=== PATIENT | female | born 1965 | race Caucasian/White ===

== ENCOUNTER 2016-12-28 07:58 | Emergency (ER) | payer MEDICAID ==
[2016-12-28 08:10] VITALS: BP 129/76
[2016-12-28] MEDS ORDERED: Albuterol/Ipratropium 3.0-0.5 MG/3 ML Neb Soln NEB ONE (08:15)
[2016-12-28] MEDS ORDERED: Albuterol/Ipratropium 3.0-0.5 MG/3 ML Neb Soln ONE (08:16)
--- NOTE | 2016-12-28 08:58 | EDM.PDOC ---
ED HPI GENERAL MEDICAL PROBLEM - General Chief Complaint: Respiratory Problem Stated Complaint: TROUBLE BREATHING, PASSED OUT Time Seen by Provider: 12/28/16 08:40 Source of Information: Reports: Patient History Limitations: Reports: No Limitations - History of Present Illness INITIAL COMMENTS - FREE TEXT/NARRATIVE: This 51 yo female patient reports to the ED with increased shortness of breath over the past 2 weeks and 1 episode of passing out. The patient reports she smokes 2 packs of cigarettes per day. The patient reports her breathing has gotten worse since the smoke (from the [place]). The patient does not have a primary care provider at this time and has no home treatments. Duration: Week(s):, Constant, Getting Worse Location: Reports: Chest Quality: Reports: Dull Severity: Moderate Improves with: Reports: None Worsens with: Reports: None Associated Symptoms: Reports: Cough, Shortness of Breath - Related Data Allergies Allergy/AdvReac Type Severity Reaction Status Date / Time ibuprofen Allergy Swelling Verified 12/28/16 08:06 Penicillins Allergy Swelling Verified 12/28/16 08:06 Home Meds: Home Meds guaiFENesin [Mucinex] 1,200 mg PO PRN 12/28/16 [History] Past Medical History Cardiovascular History: Reports: Heart Murmur - Past Surgical History GI Surgical History: Reports: Appendectomy, Cholecystectomy Social & Family History - Family History Family Medical History: Noncontributory - Tobacco Use Smoking Status *Q: Current Every Day Smoker Years of Tobacco use: 15 Packs/Tins Daily: 1 - Caffeine Use Caffeine Use: Reports: None - Recreational Drug Use Recreational Drug Use: No ED ROS GENERAL - Review of Systems Review Of Systems: ROS reveals no pertinent complaints other than HPI. ED EXAM, GENERAL - Physical Exam Exam: See Below Exam Limited By: No Limitations General Appearance: Alert, WD/WN, Moderate Distress, Thin Eye Exam: Bilateral Eye: EOMI, Normal Inspection, PERRL Ears: Normal External Exam, Normal Canal, Hearing Grossly Normal, Normal TMs Nose: Normal Inspection, Normal Mucosa, No Blood Throat/Mouth: Normal Inspection, Normal Lips, Normal Teeth, Normal Gums, Normal Oropharynx, Normal Voice, No Airway Compromise Head: Atraumatic, Normocephalic Neck: Normal Inspection, Supple, Non-Tender, Full Range of Motion Respiratory/Chest: Decreased Breath Sounds, Crackles (throughout), Rhonchi ( faint in the bases) Cardiovascular: Normal Peripheral Pulses, Regular Rate, Rhythm, No Edema, No Gallop, No JVD, No Murmur, No Rub GI/Abdominal: Normal Bowel Sounds, Soft, Non-Tender, No Organomegaly, No Distention, No Abnormal Bruit, No Mass (Female) Exam: Deferred Rectal (Female) Exam: Deferred Back Exam: Normal Inspection, Full Range of Motion, NT Extremities: Normal Inspection, Normal Range of Motion, Non-Tender, Normal Capillary Refill, No Pedal Edema Neurological: Alert, Oriented, CN II-XII Intact, Normal Cognition, Normal Gait, Normal Reflexes, No Motor/Sensory Deficits Psychiatric: Normal Affect, Normal Mood Skin Exam: Warm, Dry, Intact, Normal Color, No Rash Lymphatic: No Adenopathy Course - Vital Signs Last Recorded V/S: Last Vital Signs Temp 36.7 C 12/28/16 08:08 Pulse 84 12/28/16 08:25 Resp 20 12/28/16 08:08 BP 129/76 12/28/16 08:08 Pulse Ox 96 12/28/16 08:25 - Orders/Labs/Meds Orders: Active Orders 24 hr Category Date Time Status RT Aerosol Therapy [RC] ASDIRECTED Care 12/28/16 08:16 Ordered Chest 2V [CR] Urgent Exams 12/28/16 08:15 Ordered COMPREHENSIVE METABOLIC PN,CMP [CHEM] Urgent Lab 12/28/16 08:15 Ordered Labs: Laboratory Tests 12/28/16 Range/Units 08:38 WBC 7.6 (5.0-10.0) 10^3/uL RBC 4.84 (4.2-5.4) 10^6/uL Hgb 15.7 (12.0-16.0) g/dL Hct 47.9 H (37.0-47.0) % MCV 99.0 (80-100) fL MCH 32.4 (27.0-34.0) pg MCHC 32.8 L (33.0-35.0) g/dL Plt Count 181 (150-450) 10^3/uL Neut % (Auto) 70.6 (42.2-75.2) % Lymph % (Auto) 23.5 (20.5-50.1) % [place] % (Auto) 5.5 (2-8) % Eos % (Auto) 0.1 L (1.0-3.0) % Baso % (Auto) 0.3 (0.0-1.0) % Meds: Medications Discontinued Medications Generic Name Dose Route Start Last Admin Trade Name [place] PRN Reason Stop Dose Admin Albuterol/Ipratropium 3 ml 12/28/16 08:15 12/28/16 08:20 Duoneb 3.0-0.5 Mg/3 Ml NEB 12/28/16 08:16 3 ml ONETIME ONE Administration Albuterol/Ipratropium Confirm 12/28/16 08:16 12/28/16 08:20 Duoneb 3.0-0.5 Mg/3 Ml Administered 12/28/16 08:17 Not Given Dose 3 ml .ROUTE .STK-MED ONE Methylprednisolone Sodium Succinate 40 mg 12/28/16 08:59 Solu-Medrol IM 12/28/16 09:00 ONETIME ONE Departure - Departure Time of Disposition: 09:02 Disposition: Home, Self-Care 01 Condition: Fair Clinical Impression: Acute bronchitis Qualifiers: Bronchitis organism: unspecified organism Qualified Code(s): J20.9 - Acute bronchitis, unspecified - Discharge Information Instructions: Acute Bronchitis, [id number] Forms: ED Department Discharge Care Plan Goals: The patient was advised of the examination, x-ray and lab results during the visit. The patient was given an injection of Solu-Medrol while in the ED. The patient was discharged with a script for Azithromycin (250 mg) #6 2 by mouth day 1 and 1 by mouth days 2-5 and Prednisone (20 mg) #10 to take 2 by mouth daily for 5 days. The patient was encouraged to follow-up with a primary care facility for continued evaluation and management. If the patient has any additional symptoms or concerns, the patient should visit her primary care facility or return to the emergency department. - My Orders Last 24 Hours: My Active Orders 12/28/16 08:15 Chest 2V [CR] Urgent COMPREHENSIVE METABOLIC PN,CMP [CHEM] Urgent 12/28/16 08:16 RT Aerosol Therapy [RC] ASDIRECTED - Assessment/Plan Last 24 Hours: My Active Orders 12/28/16 08:15 Chest 2V [CR] Urgent COMPREHENSIVE METABOLIC PN,CMP [CHEM] Urgent 12/28/16 08:16 RT Aerosol Therapy [RC] ASDIRECTED
[2016-12-28] MEDS ORDERED: methylPREDNISolone Sodium Succinate 40 MG/1 ML SDV IM ONE (08:59)
[2016-12-28 09:06] LABS: CHLORIDE,CL 96 mmol/L (101-111); SODIUM,NA 135 mmol/L (135-145)
== END 2016-12-28 09:21 | disposition home or self-care (01) ==
LOC: DL.ED 07:58
DX: J20.9 Acute bronchitis, unspecified (principal); F17.210 Nicotine dependence, cigarettes, uncomplicated; Z88.0 Allergy status to penicillin; Z88.6 Allergy status to analgesic agent; Z90.49 Acquired absence of other specified parts of digestive tract
CPT/HCPCS: 36415; 71020; 80053; 85025; 94640; 96372; 99285; J2920

== ENCOUNTER 2017-12-03 19:37 | Emergency (ER) | payer MEDICAID ==
[2017-12-03] MEDS ORDERED: Albuterol 0.083% 2.5 MG/3 ML Neb Soln INH ONE (19:38)
[2017-12-03] MEDS ORDERED: Codeine/Promethazine 10-6.25 MG/5 ML Syrup 5 ML UD Cup PO ONE (19:38)
[2017-12-03] MEDS ORDERED: Albuterol/Ipratropium 3.0-0.5 MG/3 ML Neb Soln NEB ONE (19:43)
[2017-12-03] MEDS ORDERED: methylPREDNISolone Sodium Succinate 125 MG/2 ML SDV IVPUSH ONE (19:44)
[2017-12-03 19:56] VITALS: BP 164/89
--- NOTE | 2017-12-03 20:01 | EDM.PDOC ---
ED HPI GENERAL MEDICAL PROBLEM - General Chief Complaint: Respiratory Problem Stated Complaint: HARD TIME BREADHING [id number] Time Seen by Provider: 12/03/17 19:59 Source of Information: Reports: Patient History Limitations: Reports: No Limitations - History of Present Illness INITIAL COMMENTS - FREE TEXT/NARRATIVE: 10 days h/o cough congestion. saw clinic got IM solumed + P.O f/u. was doing ok then got worse again 2 days ago. did stop smoking 3 weeks ago. 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 ED EXAM, GENERAL - Physical Exam Exam: See Below Exam Limited By: No Limitations General Appearance: Alert, WD/WN, Mild Distress, Other (cough) Ears: Hearing Grossly Normal Throat/Mouth: Normal Voice, No Airway Compromise Head: Atraumatic Neck: Non-Tender, Full Range of Motion Respiratory/Chest: No Accessory Muscle Use, Decreased Breath Sounds, Rhonchi, Wheezing. No: Retractions Cardiovascular: Regular Rate, Rhythm GI/Abdominal: Soft, Non-Tender Neurological: Alert, Oriented, Normal Cognition, Normal Gait, No Motor/Sensory Deficits Psychiatric: Normal Affect, Normal Mood Skin Exam: Warm, Dry, Normal Color Lymphatic: No Adenopathy Course - Vital Signs Last Recorded V/S: Last Vital Signs Temp 37.2 C 12/03/17 19:43 Pulse 100 12/03/17 19:43 Resp 20 12/03/17 19:43 BP 164/89 H 12/03/17 19:43 Pulse Ox 86 L 12/03/17 19:43 - Orders/Labs/Meds Orders: Active Orders 24 hr Category Date Time Status RT Aerosol Therapy [RC] ASDIRECTED Care 12/03/17 19:43 Active RT Aerosol Therapy [RC] ASDIRECTED Care 12/03/17 21:09 Active Chest 1V Frontal [CR] Urgent Exams 12/03/17 19:44 Taken Labs: Laboratory Tests 12/03/17 12/03/17 12/03/17 Range/Units 19:55 19:55 19:55 WBC 13.3 H (5.0-10.0) 10^3/uL RBC 4.60 (4.2-5.4) 10^6/uL Hgb 15.0 (12.0-16.0) g/dL Hct 46.6 (37.0-47.0) % MCV 101.3 H (80-100) fL MCH 32.6 (27.0-34.0) pg MCHC 32.2 L (33.0-35.0) g/dL Plt Count 195 (150-450) 10^3/uL Neut % (Auto) 68.7 (42.2-75.2) % Lymph % (Auto) 24.0 (20.5-50.1) % [place] % (Auto) 6.5 (2-8) % Eos % (Auto) 0.4 L (1.0-3.0) % Baso % (Auto) 0.4 (0.0-1.0) % Sodium 135 (135-145) mmol/L Potassium 4.3 (3.6-5.0) mmol/L Chloride 98 L (101-111) mmol/L Carbon Dioxide 28.0 (21.0-31.0) mmol/L Anion Gap 13.3 BUN 7 (7-18) mg/dL Creatinine 0.5 L (0.6-1.3) mg/dL Est Cr Clr Drug Dosing 92.10 mL/min Estimated GFR (MDRD) > 60 BUN/Creatinine Ratio 14.00 Glucose 114 H (74-105) mg/dL Lactic Acid 1.3 (0.5-2.2) mmol/L Calcium 9.1 (8.4-10.2) mg/dl Total Bilirubin 0.4 (0.2-1.0) mg/dL AST 25 (10-42) IU/L ALT 19 (10-60) IU/L Alkaline Phosphatase 69 (42-121) IU/L Total Protein 6.9 (6.7-8.2) g/dl Albumin 4.2 (3.2-5.5) g/dl Globulin 2.7 Albumin/Globulin Ratio 1.56 Meds: Medications Discontinued Medications Generic Name Dose Route Start Last Admin Trade Name Freq PRN Reason Stop Dose Admin Albuterol 2.5 mg 12/03/17 21:08 12/03/17 21:13 Proventil Neb Soln NEB 12/03/17 21:09 2.5 mg ONETIME ONE Administration Albuterol Confirm 12/03/17 21:09 12/03/17 21:20 Proventil Neb Soln Administered 12/03/17 21:10 Not Given Dose 5 mg .ROUTE .STK-MED ONE Albuterol/Ipratropium 3 ml 12/03/17 19:43 12/03/17 19:53 Duoneb 3.0-0.5 Mg/3 Ml NEB 12/03/17 19:44 3 ml ONETIME ONE Administration Methylprednisolone Sodium Succinate 125 mg 12/03/17 19:44 12/03/17 19:53 Solu-Medrol IVPUSH 12/03/17 19:45 125 mg ONETIME ONE Administration Promethazine HCl/Codeine Confirm 12/03/17 21:08 12/03/17 21:20 Phenergan With Codeine Administered 12/03/17 21:09 Not Given Dose 5 ml .ROUTE .STK-MED ONE - Re-Assessments/Exams Free Text/Narrative Re-Assessment/Exam: 12/03/17 21:07 s/p duoneb + IV solu = much better Departure - Departure Time of Disposition: 20:25 Disposition: Home, Self-Care 01 Condition: Good Clinical Impression: COPD with acute exacerbation, Bronchospasm with bronchitis, acute - Discharge Information Instructions: Chronic Obstructive Pulmonary Disease, Skez-[id number] Forms: ED Department Discharge Additional Instructions: 1) don't sleep flat at night 2) drink lots of liquids 3) recheck if there is any change or concern rx given; albuterol 2.5mg solution tid to qid prn phenergan codeine syrup qid prn - My Orders Last 24 Hours: My Active Orders 12/03/17 19:43 RT Aerosol Therapy [RC] ASDIRECTED 12/03/17 19:44 Chest 1V Frontal [CR] Urgent 12/03/17 21:09 RT Aerosol Therapy [RC] ASDIRECTED - Assessment/Plan Last 24 Hours: My Active Orders 12/03/17 19:43 RT Aerosol Therapy [RC] ASDIRECTED 12/03/17 19:44 Chest 1V Frontal [CR] Urgent 12/03/17 21:09 RT Aerosol Therapy [RC] ASDIRECTED
[2017-12-03 20:33] LABS: ANION GAP 13.3; CHLORIDE,CL 98 mmol/L (101-111); SODIUM,NA 135 mmol/L (135-145)
[2017-12-03] MEDS ORDERED: Codeine/Promethazine 10-6.25 MG/5 ML Syrup 5 ML UD Cup ONE (21:08)
[2017-12-03] MEDS ORDERED: Albuterol 0.083% 2.5 MG/3 ML Neb Soln NEB ONE (21:08)
[2017-12-03] MEDS ORDERED: Albuterol 0.083% 2.5 MG/3 ML Neb Soln ONE (21:09)
== END 2017-12-03 20:28 | disposition home or self-care (01) ==
LOC: DL.ED 19:37
DX: J20.9 Acute bronchitis, unspecified (principal); J44.0 Chronic obstructive pulmonary disease with (acute) lower respiratory infection; J44.1 Chronic obstructive pulmonary disease with (acute) exacerbation; Z88.0 Allergy status to penicillin; Z88.6 Allergy status to analgesic agent; Z87.891 Personal history of nicotine dependence
CPT/HCPCS: 36415; 71045; 80053; 83605; 85025; 96374; 99285; J2930; J7620; J7613-GY

== ENCOUNTER 2017-12-11 18:48 | Emergency (ER) | payer MEDICAID ==
[2017-12-11] MEDS ORDERED: predniSONE 20 MG Tab PO ONE (18:49)
[2017-12-11] MEDS ORDERED: Albuterol/Ipratropium 3.0-0.5 MG/3 ML Neb Soln INH ONE (18:49)
[2017-12-11] MEDS ORDERED: Azithromycin 250 MG Tab PO ONE (18:49)
[2017-12-11 19:00] VITALS: BP 151/97
[2017-12-11] MEDS ORDERED: Albuterol/Ipratropium 3.0-0.5 MG/3 ML Neb Soln NEB ONE (19:16)
[2017-12-11] MEDS ORDERED: Sodium Chloride 0.9% 10 ML Syringe FLUSH PRN (19:17)
[2017-12-11 19:57] LABS: ANION GAP 13.6; CHLORIDE,CL 91 mmol/L (101-111); SODIUM,NA 128 mmol/L (135-145)
[2017-12-11] MEDS ORDERED: cefTRIAXone 1 GM Vial IVPUSH ONE (20:08)
[2017-12-11] MEDS ORDERED: methylPREDNISolone Sodium Succinate 40 MG/1 ML SDV IVPUSH ONE (20:08)
--- NOTE | 2017-12-11 20:18 | EDM.PDOC ---
ED HPI GENERAL MEDICAL PROBLEM - General Chief Complaint: Respiratory Problem Stated Complaint: HARD TIME BREATHING [id number] Time Seen by Provider: 12/11/17 20:13 Source of Information: Reports: Patient History Limitations: Reports: No Limitations - History of Present Illness INITIAL COMMENTS - FREE TEXT/NARRATIVE: This 52 yo female patient reports to the ED with increased shortness of breath. The patient has been diagnosed with COPD, but her breathing got much worse tonight. The patient has tried her home nebulizer treatment, but has had no symptom relief. 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, Other Medication(s) - Related Data Allergies Allergy/AdvReac Type Severity Reaction Status Date / Time ibuprofen Allergy Swelling Verified 12/03/17 19:56 Penicillins Allergy Swelling Verified 12/03/17 19:56 Home Meds: Home Meds guaiFENesin [Mucinex] 1,200 mg PO PRN 12/28/16 [History] Past Medical History Cardiovascular History: Reports: Heart Murmur Respiratory History: Reports: COPD, 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, 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 ED EXAM, GENERAL - Physical Exam Exam: See Below Exam Limited By: No Limitations General Appearance: Alert, WD/WN, Moderate Distress Eye Exam: Bilateral Eye: EOMI, Normal Inspection, PERRL Ears: Normal External Exam, Normal Canal, Hearing Grossly Normal, Normal TMs Nose: Normal Inspection, Normal Mucosa, No Blood Throat/Mouth: Normal Inspection, Normal Lips, Normal Teeth, Normal Gums, Normal Oropharynx, Normal Voice, No Airway Compromise Head: Atraumatic, Normocephalic Respiratory/Chest: Decreased Breath Sounds, Rhonchi, Wheezing Cardiovascular: Normal Peripheral Pulses, Regular Rate, Rhythm, No Edema, No Gallop, No JVD, No Murmur, No Rub GI/Abdominal: Normal Bowel Sounds, Soft, Non-Tender, No Organomegaly, No Distention, No Abnormal Bruit, No Mass (Female) Exam: Deferred Rectal (Female) Exam: Deferred Back Exam: Normal Inspection, Full Range of Motion, NT Extremities: Normal Inspection, Normal Range of Motion, Non-Tender, Normal Capillary Refill, No Pedal Edema Neurological: Alert, Oriented, CN II-XII Intact, Normal Cognition, Normal Gait, Normal Reflexes, No Motor/Sensory Deficits Psychiatric: Normal Affect, Normal Mood Skin Exam: Warm, Dry, Intact, Normal Color, No Rash Lymphatic: No Adenopathy Course - Vital Signs Last Recorded V/S: Last Vital Signs Temp 36.2 C 12/11/17 18:59 Pulse 97 12/11/17 18:59 Resp 20 12/11/17 18:59 BP 151/97 H 12/11/17 18:59 Pulse Ox 87 L 12/11/17 18:59 - Orders/Labs/Meds Orders: Active Orders 24 hr Category Date Time Status Peripheral IV Care [RC] . DIRECTED Care 12/11/17 19:17 Active RT Aerosol Therapy [RC] ASDIRECTED Care 12/11/17 19:16 Active CULTURE BLOOD [BC] Stat Lab 12/11/17 19:28 Received Peripheral IV Insertion Adult [OM.PC] Routine Oth 12/11/17 19:17 Ordered Labs: Laboratory Tests 12/11/17 12/11/17 12/11/17 Range/Units 19:28 19:28 19:28 WBC 10.1 H (5.0-10.0) 10^3/uL RBC 4.51 (4.2-5.4) 10^6/uL Hgb 15.1 (12.0-16.0) g/dL Hct 44.5 (37.0-47.0) % MCV 98.7 (80-100) fL MCH 33.5 (27.0-34.0) pg MCHC 33.9 (33.0-35.0) g/dL RDW Not Reportable RDW Coeff of Veda Not Reportable Plt Count 171 (150-450) 10^3/uL MPV Not Reportable Neutrophils % (Manual) 73 (42-75) % Lymphocytes % (Manual) 21 (20-50) % Monocytes % (Manual) 6 (2-8) % Sodium 128 L (135-145) mmol/L Potassium 4.6 (3.6-5.0) mmol/L Chloride 91 L (101-111) mmol/L Carbon Dioxide 28.0 (21.0-31.0) mmol/L Anion Gap 13.6 BUN 11 (7-18) mg/dL Creatinine 0.4 L (0.6-1.3) mg/dL Est Cr Clr Drug Dosing 112.83 mL/min Estimated GFR (MDRD) > 60 BUN/Creatinine Ratio 27.50 Glucose 100 (74-105) mg/dL Lactic Acid 0.9 (0.5-2.2) mmol/L Calcium 9.2 (8.4-10.2) mg/dl Total Bilirubin 0.7 (0.2-1.0) mg/dL AST 28 (10-42) IU/L ALT 20 (10-60) IU/L Alkaline Phosphatase 66 (42-121) IU/L Total Protein 7.5 (6.7-8.2) g/dl Albumin 4.5 (3.2-5.5) g/dl Globulin 3.0 Albumin/Globulin Ratio 1.50 Meds: Medications Discontinued Medications Generic Name Dose Route Start Last Admin Trade Name Coryq PRN Reason Stop Dose Admin Albuterol/Ipratropium 3 ml 12/11/17 19:16 12/11/17 19:28 Duoneb 3.0-0.5 Mg/3 Ml NEB 12/11/17 19:17 3 ml ONETIME ONE Administration Albuterol/Ipratropium Confirm 12/11/17 20:23 Duoneb 3.0-0.5 Mg/3 Ml Administered 12/11/17 20:24 Dose 12 ml .ROUTE .STK-MED ONE Azithromycin Confirm 12/11/17 20:24 Zithromax Administered 12/11/17 20:25 Dose 500 mg .ROUTE .STK-MED ONE Ceftriaxone Sodium 1 gm 12/11/17 20:08 12/11/17 20:20 Rocephin IVPUSH 12/11/17 20:09 1 gm ONETIME ONE Administration Methylprednisolone Sodium Succinate 40 mg 12/11/17 20:08 12/11/17 20:18 Solu-Medrol IVPUSH 12/11/17 20:09 40 mg ONETIME ONE Administration Prednisone Confirm 12/11/17 20:23 Prednisone Administered 12/11/17 20:24 Dose 40 mg .ROUTE .STK-MED ONE Sodium Chloride 10 ml 12/11/17 19:17 12/11/17 19:29 Saline Flush FLUSH 10 ml ASDIRECTED PRN Administration Keep Vein Open Departure - Departure Time of Disposition: 20:13 Disposition: Home, Self-Care 01 Condition: Fair Clinical Impression: COPD with acute exacerbation Acute bronchitis Qualifiers: Bronchitis organism: unspecified organism Qualified Code(s): J20.9 - Acute bronchitis, unspecified - Discharge Information *PRESCRIPTION DRUG MONITORING PROGRAM REVIEWED*: Not Applicable *COPY OF PRESCRIPTION DRUG MONITORING REPORT IN PATIENT VANNA: Not Applicable Instructions: Chronic Obstructive Pulmonary Disease, [id number], Acute Bronchitis, Adult, [id number] Forms: ED Department Discharge Care Plan Goals: The patient was advised of the examination, lab and x-ray results during the visit. The patient was given an IV dose of SoluMedrol, an IV dose of Rocephin and a DuoNeb treatment while in the ED. The patient was discharged with Duoneb 3 mL #4 to take 1 treatment every 6 hours as needed, Azithromycin (500 mg) #1 to take tomorrow and Prednisone (20 mg) #2 to take 2 tabs by mouth tomorrow. The patient was also given a script for Prednisone (20 mg) #8 to take 2 by mouth daily for 4 days and Azithromycin (250 mg) #4 to take 1 by mouth daily ( starting 12/13/17). The patient should follow-up with her primary care facility for continued evaluation and further treatment. - My Orders Last 24 Hours: My Active Orders 12/11/17 19:16 RT Aerosol Therapy [RC] ASDIRECTED 12/11/17 19:17 Peripheral IV Care [RC] . DIRECTED Peripheral IV Insertion Adult [OM.PC] Routine 12/11/17 19:28 CULTURE BLOOD [BC] Stat - Assessment/Plan Last 24 Hours: My Active Orders 12/11/17 19:16 RT Aerosol Therapy [RC] ASDIRECTED 12/11/17 19:17 Peripheral IV Care [RC] . DIRECTED Peripheral IV Insertion Adult [OM.PC] Routine 12/11/17 19:28 CULTURE BLOOD [BC] Stat
[2017-12-11] MEDS ORDERED: predniSONE 20 MG Tab ONE (20:23)
[2017-12-11] MEDS ORDERED: Albuterol/Ipratropium 3.0-0.5 MG/3 ML Neb Soln ONE (20:23)
[2017-12-11] MEDS ORDERED: Azithromycin 250 MG Tab ONE (20:24)
== END 2017-12-11 20:35 | disposition home or self-care (01) ==
LOC: DL.ED 18:48
DX: J44.1 Chronic obstructive pulmonary disease with (acute) exacerbation (principal); J20.9 Acute bronchitis, unspecified; Z88.0 Allergy status to penicillin; Z88.6 Allergy status to analgesic agent
CPT/HCPCS: 36415; 71046; 80053; 83605; 85007; 85027; 87040; 94640; 96374; 96375; 99285; J0696; J2920; J7050; A9270-GY; J7620-GY

== ENCOUNTER 2018-10-02 19:31 | Emergency (ER) | payer MEDICAID ==
[2018-10-02] MEDS ORDERED: methylPREDNISolone Sodium Succinate 125 MG/2 ML SDV IVPUSH ONE (19:48)
--- NOTE | 2018-10-02 19:48 | EDM.PDOC ---
ED HPI GENERAL MEDICAL PROBLEM - General Stated Complaint: HARD TIME BREATHING Time Seen by Provider: 10/02/18 19:41 Source of Information: Reports: Patient History Limitations: Reports: No Limitations - History of Present Illness INITIAL COMMENTS - FREE TEXT/NARRATIVE: c/o SOB. Started with scratchy throat 2 days prior. Out mowing grass this afternoon and felt tight and SOB. DUO neb at home 545pm with some relief. No current tobacco use. No fever, HX COPD. Throat Pain Score (Numeric/FACES): 2 - Related Data Allergies Allergy/AdvReac Type Severity Reaction Status Date / Time ibuprofen Allergy Swelling Verified 10/02/18 19:49 Penicillins Allergy Swelling Verified 10/02/18 19:49 Home Meds: Home Meds Albuterol [Proventil HFA] 2 puff INH BID PRN 03/03/18 [History] Albuterol/Ipratropium [DuoNeb 3.0-0.5 MG/3 ML] 3 ml INH Q6H PRN 03/03/18 [ History] Fluticasone/Salmeterol [Advair 250-50 Diskus] 1 puff INH BID 03/03/18 [History] Acetylcysteine [Nac] 1,200 mg PO QAM 04/01/18 [History] Acetylcysteine [Nac] 1,200 mg PO QPM 04/01/18 [History] [place]-3/DHA/Epa/Fish Oil [[place] 3 500 Softgel] 1,000 mg PO DAILY 04/01/18 [ History] Ubidecarenone [Co Q-10] 100 mg PO DAILY 04/01/18 [History] Nicotine [Habitrol] 14 mg TRDERM DAILY 10 Days #10 patch 04/08/18 [Rx] dilTIAZem HCl [Diltiazem 24Hr ER] 300 mg PO DAILY 04/10/18 [History] hydrOXYzine HCl [hydrOXYzine] 25 mg PO TID PRN 04/10/18 [History] Dulera 2 puff INH BID 10/02/18 [History] Past Medical History HEENT History: Reports: Impaired Vision Cardiovascular History: Reports: Heart Murmur, Pulmonary Hypertension Respiratory History: Reports: COPD, Pneumonia, Recurrent, 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 ED EXAM, GENERAL - Physical Exam Exam: See Below Exam Limited By: No Limitations General Appearance: Alert, Mild Distress Eye Exam: Bilateral Eye: EOMI Ears: Normal External Exam, Normal TMs Nose: Normal Inspection Throat/Mouth: Normal Inspection Head: Atraumatic, Normocephalic Neck: Normal Inspection Respiratory/Chest: No Respiratory Distress, Decreased Breath Sounds, Wheezing ( bilateral ), Prolonged Expiration Cardiovascular: Normal Peripheral Pulses, Regular Rate, Rhythm GI/Abdominal: Normal Bowel Sounds Extremities: Normal Inspection Neurological: Alert, Oriented, Normal Cognition Psychiatric: Normal Affect, Normal Mood Skin Exam: Warm, Dry, Intact, Normal Color Course - Vital Signs Last Recorded V/S: Last Vital Signs Temp 98.6 F 10/02/18 19:33 Pulse 79 10/02/18 19:33 Resp 14 10/02/18 19:33 BP 138/84 10/02/18 19:33 Pulse Ox 93 L 10/02/18 19:33 - Orders/Labs/Meds Orders: Active Orders 24 hr Category Date Time Status RT Aerosol Therapy [RC] ASDIRECTED Care 10/02/18 20:26 Active CXR [Chest 2V] [CR] Urgent Exams 10/02/18 20:11 Taken CULTURE STREP A CONFIRMATION [] Stat Lab 10/02/18 19:40 Results STREP SCRN A RAPID W CULT CONF [RM] Stat Lab 10/02/18 19:40 Results Labs: Laboratory Tests 10/02/18 10/02/18 Range/Units 19:59 19:59 WBC 5.8 (5.0-10.0) 10^3/uL RBC 4.07 L (4.2-5.4) 10^6/uL Hgb 12.6 (12.0-16.0) g/dL Hct 38.7 (37.0-47.0) % MCV 95.1 D (80-100) fL MCH 31.0 (27.0-34.0) pg MCHC 32.6 L (33.0-35.0) g/dL Plt Count 163 (150-450) 10^3/uL Neut % (Auto) 54.8 (42.2-75.2) % Lymph % (Auto) 33.7 (20.5-50.1) % [place] % (Auto) 9.6 H (2-8) % Eos % (Auto) 1.2 (1.0-3.0) % Baso % (Auto) 0.7 (0.0-1.0) % Sodium 136 (135-145) mmol/L Potassium 3.7 (3.6-5.0) mmol/L Chloride 102 (101-111) mmol/L Carbon Dioxide 25.0 (21.0-31.0) mmol/L Anion Gap 12.7 BUN 4 L (7-18) mg/dL Creatinine 0.3 L (0.6-1.3) mg/dL Est Cr Clr Drug Dosing 159.00 mL/min Estimated GFR (MDRD) > 60 BUN/Creatinine Ratio 13.33 Glucose 99 (74-105) mg/dL Calcium 9.0 (8.4-10.2) mg/dl Total Bilirubin 0.5 (0.2-1.0) mg/dL AST 19 (10-42) IU/L ALT 15 (10-60) IU/L Alkaline Phosphatase 66 (42-121) IU/L Total Protein 6.7 (6.7-8.2) g/dl Albumin 4.5 (3.2-5.5) g/dl Globulin 2.2 Albumin/Globulin Ratio 2.05 Meds: Medications Discontinued Medications Generic Name Dose Route Start Last Admin Trade Name Freq PRN Reason Stop Dose Admin Albuterol 2.5 mg 10/02/18 20:25 10/02/18 20:31 Proventil Neb Soln NEB 10/02/18 20:26 2.5 mg ONETIME ONE Administration Methylprednisolone Sodium Succinate 125 mg 10/02/18 19:48 10/02/18 20:00 Solu-Medrol IVPUSH 10/02/18 19:49 125 mg ONETIME ONE Administration - Radiology Interpretation Free Text/Narrative:: [facility] Final Radiology Report Call: [phone] assistance Online chat: [email or web address] Name: ZAMZAM PERALTA Age: 53Years F Date: 10/02/2018 SSN: -- : [id number] Study: XR CHEST 2 VIEWS FRONTAL & LAT Requesting Physician: LE HOLLINGSWORTH Images: 2 Addl Studies: Provided Clinical History: Contrast: Contrast Medium: Contrast Amount: Contrast Method: CONFIDENTIALITY STATEMENT This report is intended only for use by the referring physician, and only in accordance with law. If you received this in error, call [phone]. Page 1 of 1 EXAM: XR Chest, 2 Views EXAM DATE/TIME: 10/02/2018 8:16 PM CLINICAL HISTORY: 53 years old, female; Cough TECHNIQUE: Imaging protocol: XR of the chest, 2 views. COMPARISON: CR Chest 1V Frontal 04/01/2018 8:40 AM FINDINGS: Lungs: Emphysematous changes. No evidence of pneumonia, pulmonary vascular congestion, or pulmonary edema. Pleural space: No pneumothorax. No sizable pleural effusion. Heart/Mediastinum: No cardiomegaly. Bones/joints: Callous surrounding an old fracture of the posterior left sixth rib. IMPRESSION: Emphysematous changes. No evidence of pneumonia, pulmonary vascular congestion, or pulmonary edema. Thank you for allowing us to participate in the care of your patient. Dictated and Authenticated by: Sarabjit Nunn MD 10/02/2018 9:59 PM Central Time ([place] & [place] Departure - Departure Time of Disposition: 20:38 Disposition: Home, Self-Care 01 Condition: Good Clinical Impression: COPD exacerbation - Discharge Information *PRESCRIPTION DRUG MONITORING PROGRAM REVIEWED*: Yes *COPY OF PRESCRIPTION DRUG MONITORING REPORT IN PATIENT VANNA: No Instructions: Chronic Obstructive Pulmonary Disease Exacerbation, [id number] Referrals: Ivette Fuller MD [Primary Care Provider] - Forms: ED Department Discharge Additional Instructions: Continue home medications Albuterol inhaler/ nebulizer every 4 hours as needed prednisone 10mg - 4 x 2 days , 3 x 2 dasy, 2 x 2 days, 1 x 2 days follow up clinic this week for recheck - My Orders Last 24 Hours: My Active Orders 10/02/18 19:40 CULTURE STREP A CONFIRMATION [] Stat STREP SCRN A RAPID W CULT CONF [RM] Stat 10/02/18 20:11 CXR [Chest 2V] [CR] Urgent 10/02/18 20:26 RT Aerosol Therapy [RC] ASDIRECTED - Assessment/Plan Last 24 Hours: My Active Orders 10/02/18 19:40 CULTURE STREP A CONFIRMATION [RM] Stat STREP SCRN A RAPID W CULT CONF [RM] Stat 10/02/18 20:11 CXR [Chest 2V] [CR] Urgent 10/02/18 20:26 RT Aerosol Therapy [RC] ASDIRECTED
[2018-10-02 19:49] VITALS: BP 138/84; PULSE 79
[2018-10-02] MEDS ORDERED: Albuterol 0.083% 2.5 MG/3 ML Neb Soln NEB ONE (20:25)
[2018-10-02 20:35] LABS: ANION GAP 12.7; CHLORIDE,CL 102 mmol/L (101-111); SODIUM,NA 136 mmol/L (135-145)
== END 2018-10-02 20:48 | disposition home or self-care (01) ==
LOC: DL.ED 19:31
DX: J44.1 Chronic obstructive pulmonary disease with (acute) exacerbation (principal); Z87.01 Personal history of pneumonia (recurrent); Z88.0 Allergy status to penicillin; Z88.6 Allergy status to analgesic agent; Z79.899 Other long term (current) drug therapy
CPT/HCPCS: 36415; 71046; 80053; 85025; 87081; 87430; 94640; 96374; 99284; J2930; J7613-GY

== ENCOUNTER 2019-04-14 11:40 | Emergency (ER) | payer BC, MEDICAID ==
[2019-04-14 12:02] VITALS: BP 106/72
[2019-04-14] MEDS ORDERED: Albuterol/Ipratropium 3.0-0.5 MG/3 ML Neb Soln NEB ONE (12:20)
[2019-04-14 12:52] VITALS: PULSE 80
--- NOTE | 2019-04-14 12:54 | CR ---
EXAMINATION: Chest 2V SEX: Female AGE: 53 years CLINICAL HISTORY: 53-year-old DYSPNEIC female reported on 05 October 2018 to have "small airway disease and nonspecific bibasal consolidation". Reevaluate please. Interpretation: Abnormal but unchanged radiographically since September 2018. Generalized pronounced air trapping is hyperexpansion of both lung rabago) as noted back on 05 October 2018 exam. Subtle chronic mild pleural-parenchymal scarring both lung bases but no new focal lobar consolidation (infiltrate/atelectasis). Normal cardiac silhouette. No pulmonary vascular congestion, alveolar edema or dependent effusion. *No new lung mass, hilar lymphadenopathy or focal lobar pneumonia. Old healed fracture deformities posterior lateral left sixth rib. No acute fracture or pneumothorax.
[2019-04-14 13:03] LABS: ANION GAP 15.6; CHLORIDE,CL 98 mmol/L (101-111); SODIUM,NA 139 mmol/L (135-145)
--- NOTE | 2019-04-14 13:48 | EDM.PDOC ---
Scribed by Candy Hadley 04/14/19 [id number] for Peri Ratliff NP ED HPI GENERAL MEDICAL PROBLEM - General Chief Complaint: Respiratory Problem Stated Complaint: SOB Time Seen by Provider: 04/14/19 12:15 Source of Information: Reports: Patient, RN, RN Notes Reviewed History Limitations: Reports: No Limitations - History of Present Illness INITIAL COMMENTS - FREE TEXT/NARRATIVE: A 53-year-old female who comes in with ER with history of COPD. She presents with complaints of shortness of breath upon exertion x2 days. She reports she was seen in the clinic 2 days ago and was treated with a shot of Solu-Medrol, Medrol tablets and a Z-PITER. She is on day 3 of treatment with no relief in symptoms. She reports chills, but no fever today. She has taken her medications as prescribed. Patient reports on a normal day that she does not use oxygen, but she was 5 liters at work with no relief in shortness of breath. She took a DuoNeb at home every 4 hours with little relief. No chest pain, palpitations, leg swelling. She denies smoking. She dis admit to having a productive cough with clear sputum. Onset: Gradual Duration: Getting Worse Location: Reports: Chest Severity: Moderate - Related Data Allergies Allergy/AdvReac Type Severity Reaction Status Date / Time ibuprofen Allergy Swelling Verified 10/05/18 21:47 Penicillins Allergy Swelling Verified 10/05/18 21:47 Home Meds: Home Meds Albuterol [Proventil HFA] 2 puff INH BID PRN 03/03/18 [History] Albuterol/Ipratropium [DuoNeb 3.0-0.5 MG/3 ML] 3 ml INH Q6H PRN 03/03/18 [ History] Acetylcysteine [Nac] 1,200 mg PO QAM 04/01/18 [History] Acetylcysteine [Nac] 1,200 mg PO QPM 04/01/18 [History] Nicotine [Habitrol] 14 mg TRDERM DAILY 10 Days #10 patch 04/08/18 [Rx] dilTIAZem HCl [Diltiazem 24Hr ER (Cd)] 300 mg PO DAILY 04/10/18 [History] hydrOXYzine HCL [hydrOXYzine] 25 mg PO TID PRN 04/10/18 [History] Dulera 2 puff INH BID 10/02/18 [History] levoFLOXacin [Levaquin] 750 mg PO DAILY #3 tab 10/08/18 [Rx] predniSONE 40 mg PO WITHBREAKFAST #6 tablet 10/08/18 [Rx] Past Medical History HEENT History: Reports: Impaired Vision Cardiovascular History: Reports: Heart Murmur, Pulmonary Hypertension Respiratory History: Reports: COPD, Pneumonia, Recurrent, SOB Gastrointestinal History: Reports: None 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 - Infectious Disease History Infectious Disease History: Reports: Chicken Pox, Hepatitis B - Past Surgical History GI Surgical History: Reports: Appendectomy, Cholecystectomy Female Surgical History: Reports: Other (See Below) Other Female Surgeries/Procedures: cysts removed from uterus Social & Family History - Family History Family Medical History: Noncontributory Cardiac: Reports: Hypertension Respiratory: Reports: COPD Oncologic: Reports: Brain - Tobacco Use Smoking Status *Q: Former Smoker Used Tobacco, but Quit: Yes Month/Year Tobacco Last Used: 2018 - Caffeine Use Caffeine Use: Reports: None Other Caffeine Use: diet mountain dew - Recreational Drug Use Recreational Drug Use: No ED ROS GENERAL - Review of Systems Review Of Systems: Comprehensive ROS is negative, except as noted in HPI. ED EXAM, GENERAL - Physical Exam Exam: See Below Exam Limited By: No Limitations General Appearance: Alert, Mild Distress Ears: Normal External Exam, Normal Canal, Hearing Grossly Normal, Normal TMs Nose: Normal Inspection, Normal Mucosa, No Blood Throat/Mouth: Normal Inspection, Normal Lips, Normal Teeth, Normal Gums, Normal Oropharynx, Normal Voice, No Airway Compromise Head: Atraumatic, Normocephalic Neck: Normal Inspection, Supple, Non-Tender, Full Range of Motion Respiratory/Chest: Other (diffuse inspiratory and expiratory wheezes with rhonchi. ) Cardiovascular: Normal Peripheral Pulses, Regular Rate, Rhythm, No Edema, No Gallop, No JVD, No Murmur, No Rub GI/Abdominal: Normal Bowel Sounds, Soft, Non-Tender, No Organomegaly, No Distention, No Abnormal Bruit, No Mass (Female) Exam: Deferred Rectal (Female) Exam: Deferred Extremities: Normal Inspection, Normal Range of Motion, Non-Tender, Normal Capillary Refill, No Pedal Edema Neurological: Alert, Oriented, CN II-XII Intact, Normal Cognition, Normal Gait, Normal Reflexes, No Motor/Sensory Deficits Psychiatric: Normal Affect, Normal Mood Skin Exam: Warm, Intact Lymphatic: No Adenopathy Course - Vital Signs Last Recorded V/S: Last Vital Signs Temp 98.7 F 04/14/19 11:56 Pulse 80 04/14/19 12:50 Resp BP 106/72 04/14/19 11:56 Pulse Ox 99 04/14/19 11:56 - Orders/Labs/Meds Orders: Active Orders 24 hr Category Date Time Status RT Aerosol Therapy [RC] ASDIRECTED Care 04/14/19 12:20 Active Labs: Laboratory Tests 04/14/19 04/14/19 Range/Units 12:37 12:37 WBC 7.9 (5.0-10.0) 10^3/uL RBC 3.77 L (4.2-5.4) 10^6/uL Hgb 11.8 L (12.0-16.0) g/dL Hct 36.7 L (37.0-47.0) % MCV 97.3 (80-100) fL MCH 31.3 (27.0-34.0) pg MCHC 32.2 L (33.0-35.0) g/dL Plt Count 133 L (150-450) 10^3/uL Neut % (Auto) 84.9 H (42.2-75.2) % Lymph % (Auto) 7.3 L (20.5-50.1) % [place] % (Auto) 7.4 (2-8) % Eos % (Auto) 0.1 L (1.0-3.0) % Baso % (Auto) 0.3 (0.0-1.0) % Sodium 139 (135-145) mmol/L Potassium 3.6 (3.6-5.0) mmol/L Chloride 98 L (101-111) mmol/L Carbon Dioxide 29.0 (21.0-31.0) mmol/L Anion Gap 15.6 BUN 9 (7-18) mg/dL Creatinine 0.4 L (0.6-1.3) mg/dL Est Cr Clr Drug Dosing 119.91 mL/min Estimated GFR (MDRD) > 60 BUN/Creatinine Ratio 22.50 Glucose 109 H (74-105) mg/dL Calcium 9.0 (8.4-10.2) mg/dl Total Bilirubin 0.3 (0.2-1.0) mg/dL AST 32 (10-42) IU/L ALT 24 (10-60) IU/L Alkaline Phosphatase 71 (42-121) IU/L Total Protein 7.5 (6.7-8.2) g/dl Albumin 4.4 (3.2-5.5) g/dl Globulin 3.1 Albumin/Globulin Ratio 1.42 Meds: Medications Discontinued Medications Generic Name Dose Route Start Last Admin Trade Name [place] PRN Reason Stop Dose Admin Albuterol/Ipratropium 3 ml 04/14/19 12:20 04/14/19 12:49 Duoneb 3.0-0.5 Mg/3 Ml NEB 04/14/19 12:21 3 ml ONETIME ONE Administration - Radiology Interpretation Free Text/Narrative:: Chest x-ray: Abnormal but unchanged radiographically since September 2018. Generalized pronounced air trapping is hyperexpansion of both lung rabago as noted back on October 05, 2018 exam. Subtle chronic mild pleural-parenchymal scarring both lung bases but no new focal lobar consolidation (infiltrate/ atelectasis). See rad report. - Re-Assessments/Exams Free Text/Narrative Re-Assessment/Exam: 04/14/19 12:27 Patient on 2 liters of oxygen satting at 99 to 100%. No fevers noted at this time 04/14/19 13:41 DuoNeb administered with moderate relief in symptoms. Switched Z-PITER to Levaquin 500mg daily for one week. Reviewed labs and chest x-ray with patient. Follow up with PCP in 2 days. Symptoms reviewed to return to the ER. Departure - Departure Time of Disposition: 13:21 Disposition: Home, Self-Care 01 Condition: Fair Clinical Impression: COPD (chronic obstructive pulmonary disease) Qualifiers: COPD type: chronic bronchitis Chronic bronchitis type: unspecified Qualified Code(s): J42 - Unspecified chronic bronchitis - Discharge Information *PRESCRIPTION DRUG MONITORING PROGRAM REVIEWED*: Not Applicable *COPY OF PRESCRIPTION DRUG MONITORING REPORT IN PATIENT VANNA: Not Applicable Instructions: Chronic Obstructive Pulmonary Disease Exacerbation, [id number] Referrals: PCP,None [Ordering Only Provider] - Forms: ED Department Discharge Additional Instructions: RX: Levaquin 500mg. Continue with Medrol piter as prescribed. DuoNeb every 4 hours. Encourage pulmonary toileting, deep breathing and coughing. Follow up with PCP in 2 days. Sepsis Event Note - Evaluation Sepsis Screening Result: No Definite Risk - Focused Exam Vital Signs: Vital Signs Temp Pulse BP Pulse Ox 04/14/19 12:50 80 04/14/19 11:56 98.7 F 92 106/72 99 Date Exam was Performed: 04/14/19 Time Exam was Performed: 13:46 - My Orders Last 24 Hours: My Active Orders 04/14/19 12:20 RT Aerosol Therapy [RC] ASDIRECTED - Assessment/Plan Last 24 Hours: My Active Orders 04/14/19 12:20 RT Aerosol Therapy [RC] ASDIRECTED I have read and agree with the documentation that has been completed regarding this visit. By signing this record, I attest that the documentation was completed in my physical presence and is an accurate record of the encounter.
== END 2019-04-14 13:38 | disposition home or self-care (01) ==
LOC: DL.ED 11:40
DX: J42 Unspecified chronic bronchitis (principal); I10 Essential (primary) hypertension; Z79.899 Other long term (current) drug therapy; Z90.49 Acquired absence of other specified parts of digestive tract; Z87.891 Personal history of nicotine dependence; Z88.0 Allergy status to penicillin; Z88.6 Allergy status to analgesic agent
CPT/HCPCS: 36415; 71046; 80053; 85025; 99285-25; J7620-GY

== ENCOUNTER 2021-01-11 12:16 | Emergency (ER) | payer MEDICAID, OTHER, SELFPAY ==
[2021-01-11 12:34] VITALS: BP 130/66; PULSE 88
[2021-01-11] MEDS ORDERED: Sodium Chloride 0.9% 10 ML Syringe FLUSH PRN (12:54)
[2021-01-11] MEDS ORDERED: Sodium Chloride 0.9% 1,000 ML IV ONE (12:56)
--- NOTE | 2021-01-11 13:17 | EDM.PDOC ---
ED HPI GENERAL MEDICAL PROBLEM - General Chief Complaint: Respiratory Problem Stated Complaint: BREATHING ISSUES / ON OXYGEN Time Seen by Provider: 01/11/21 12:45 Source of Information: Reports: Patient History Limitations: Reports: No Limitations - History of Present Illness INITIAL COMMENTS - FREE TEXT/NARRATIVE: 55 y/o F c/o sob, cough, body aches, fever of 102 two days ago, and dull chest pressure since Tuesday. Is normally on O2 2L but is needed 5 L during activity to maintain sat above 90%. Feels like symptoms are getting worse. Reports productive green sputum. Hx of copd and has used her duo nebs and rescue inhaler as prescribed with no relief. Was tested Wed for COVID which was negative. Quit smoking 3 years ago. Denies vision prob, sore throat, abd pn, diff voiding, constipation , drugs, etoh, recent trauma. Onset: Gradual Duration: Day(s):, Getting Worse chest wall Pain Score (Numeric/FACES): 4 - Related Data Allergies Allergy/AdvReac Type Severity Reaction Status Date / Time ibuprofen Allergy Swelling Verified 01/11/21 12:34 Penicillins Allergy Swelling Verified 01/11/21 12:34 Home Meds: Home Meds Albuterol [Proventil HFA] 2 puff INH BID PRN 03/03/18 [History] Albuterol/Ipratropium [DuoNeb 3.0-0.5 MG/3 ML] 3 ml INH Q6H PRN 03/03/18 [History] Acetylcysteine [Nac] 1,200 mg PO QAM 04/01/18 [History] Acetylcysteine [Nac] 1,200 mg PO QPM 04/01/18 [History] Nicotine [Habitrol] 14 mg TRDERM DAILY 10 Days #10 patch 04/08/18 [Rx] dilTIAZem HCL [Diltiazem 24Hr ER (Cd)] 300 mg PO DAILY 04/10/18 [History] hydrOXYzine HCL [hydrOXYzine] 25 mg PO TID PRN 04/10/18 [History] Dulera 2 puff INH BID 10/02/18 [History] levoFLOXacin [Levaquin] 750 mg PO DAILY #3 tab 10/08/18 [Rx] predniSONE 40 mg PO WITHBREAKFAST #6 tablet 10/08/18 [Rx] Past Medical History HEENT History: Reports: Impaired Vision Cardiovascular History: Reports: Heart Murmur, Pulmonary Hypertension Respiratory History: Reports: COPD, Pneumonia, Recurrent, SOB Gastrointestinal History: Reports: None Genitourinary History: Reports: None E MAIL SYSTEM ADMINISTRATOR History: Reports: Other E MAIL SYSTEM ADMINISTRATOR History: 2 nvd Musculoskeletal History: Reports: None Neurological History: Reports: None Psychiatric History: Reports: None Endocrine/Metabolic History: Reports: None Hematologic History: Reports: None Immunologic History: Reports: None Oncologic (Cancer) History: Reports: None Dermatologic History: Reports: None - Infectious Disease History Infectious Disease History: Reports: Chicken Pox, Hepatitis B - Past Surgical History HEENT Surgical History: Reports: None Cardiovascular Surgical History: Reports: None Respiratory Surgical History: Reports: None GI Surgical History: Reports: Appendectomy, Cholecystectomy Female Surgical History: Reports: Other (See Below) Other Female Surgeries/Procedures: cysts removed from uterus Musculoskeletal Surgical History: Reports: None Social & Family History - Family History Family Medical History: No Pertinent Family History Cardiac: Reports: Hypertension Respiratory: Reports: COPD Oncologic: Reports: Brain - Tobacco Use Tobacco Use Status *Q: Former Tobacco User Used Tobacco, but Quit: Yes Month/Year Tobacco Last Used: 2017 - Caffeine Use Caffeine Use: Reports: Coffee Other Caffeine Use: diet mountain dew - Recreational Drug Use Recreational Drug Use: No ED ROS GENERAL - Review of Systems Review Of Systems: Comprehensive ROS is negative, except as noted in HPI. ED EXAM, GENERAL - Physical Exam Exam: See Below Exam Limited By: No Limitations General Appearance: Alert, WD/WN, No Apparent Distress Ears: Normal External Exam, Normal Canal, Hearing Grossly Normal, Normal TMs Nose: Normal Inspection, Normal Mucosa, No Blood Throat/Mouth: Normal Inspection, Normal Lips, Normal Teeth, Normal Gums, Normal Oropharynx, Normal Voice, No Airway Compromise Head: Atraumatic, Normocephalic Neck: Normal Inspection, Supple, Non-Tender, Full Range of Motion Respiratory/Chest: Other (diminshed lung sounds throughout whith wheezes in upper lobes) Cardiovascular: Normal Peripheral Pulses, Regular Rate, Rhythm, No Edema, No Gallop, No JVD, No Murmur, No Rub GI/Abdominal: Soft, Non-Tender (Female) Exam: Deferred Rectal (Female) Exam: Deferred Back Exam: Normal Inspection, Full Range of Motion Extremities: Normal Inspection, Normal Range of Motion, Non-Tender, Normal Capillary Refill, No Pedal Edema Neurological: Alert, Oriented, CN II-XII Intact, Normal Cognition Psychiatric: Normal Affect, Normal Mood Skin Exam: Warm, Dry, Intact, Normal Color, No Rash #1 Interpretation EKG Date: 01/11/21 Time: 13:23 Rhythm: NSR [place]: Normal P-Wave: Present QRS: Normal ST-T: Normal QT: Normal Course - Vital Signs Last Recorded V/S: Last Vital Signs Temp 98.8 F 01/11/21 12:30 Pulse 88 01/11/21 12:30 Resp 20 01/11/21 12:30 BP 130/66 01/11/21 12:30 Pulse Ox 100 01/11/21 12:30 - Orders/Labs/Meds Orders: Active Orders 24 hr Category Date Time Status Peripheral IV Care [RC] . DIRECTED Care 01/11/21 12:55 Active RT Aerosol Therapy [RC] ASDIRECTED Care 01/11/21 13:19 Active UA RFX USMAN AND CULT IF INDIC [URIN] Stat Lab 01/11/21 12:54 Ordered Sodium Chloride 0.9% [Saline Flush] Med 01/11/21 12:54 Active 10 ml FLUSH ASDIRECTED PRN Peripheral IV Insertion Adult [OM.PC] Routine Oth 01/11/21 12:54 Ordered Medication Orders Sodium Chloride (Sodium Chloride 0.9% 10 Ml Syringe) 10 ml FLUSH ASDIRECTED PRN PRN Reason: Keep Vein Open Last Admin: 01/11/21 13:10 Dose: 10 ml Documented by: CAS Labs: Laboratory Tests 01/11/21 01/11/21 01/11/21 Range/Units 13:07 13:07 13:07 WBC 12.7 H (5.0-10.0) 10^3/uL RBC 3.69 L (4.2-5.4) 10^6/uL Hgb 11.3 L (12.0-16.0) g/dL Hct 35.4 L (37.0-47.0) % MCV 95.9 (80-100) fL MCH 30.6 (27.0-34.0) pg MCHC 31.9 L (33.0-35.0) g/dL Plt Count 164 (150-450) 10^3/uL Neut % (Auto) 82.8 H (42.2-75.2) % Lymph % (Auto) 8.4 L (20.5-50.1) % [place] % (Auto) 8.5 H (2-8) % Eos % (Auto) 0.1 L (1.0-3.0) % Baso % (Auto) 0.2 (0.0-1.0) % Sodium 140 (136-145) mmol/L Potassium 3.8 (3.5-5.1) mmol/L Chloride 101 (98-107) mmol/L Carbon Dioxide 29 (21-32) mmol/L Anion Gap 13.8 H (7-13) mEq/L BUN 7 (7-18) mg/dL Creatinine 0.44 L (0.55-1.02) mg/dL Est Cr Clr Drug Dosing 106.45 mL/min Estimated GFR (MDRD) > 60 BUN/Creatinine Ratio 15.9 (No establ ref range) Glucose 130 H (70-99) mg/dL Lactic Acid 0.8 (0.4-2.0) mmol/L Calcium 8.7 (8.5-10.1) mg/dL Phosphorus 3.5 (2.6-4.7) mg/dL Magnesium 1.8 (1.8-2.4) mg/dL Total Bilirubin 0.3 (0.2-1.0) mg/dL AST 16 (15-37) U/L ALT 19 (14-59) U/L Alkaline Phosphatase 135 H (46-116) U/L Troponin I High Sens < 4 (<=51) pg/mL C-Reactive Protein 26.9 H (0.0-0.9) mg/dL Total Protein 7.2 (6.4-8.2) g/dL Albumin 3.5 (3.4-5.0) g/dL Globulin 3.7 Albumin/Globulin Ratio 0.9 TSH, Ultra Sensitive 1.45 (0.36-3.74) uIU/mL Meds: Medications Generic Name Dose Route Start Last Admin Trade Name Freq PRN Reason Stop Dose Admin Sodium Chloride 10 ml 01/11/21 12:54 01/11/21 13:10 Sodium Chloride 0.9% 10 Ml Syringe FLUSH 10 ml ASDIRECTED PRN Administration Keep Vein Open Discontinued Medications Generic Name Dose Route Start Last Admin Trade Name Freq PRN Reason Stop Dose Admin Albuterol/Ipratropium 6 ml 01/11/21 13:19 01/11/21 14:03 Albuterol/Ipratropium 3.0-0.5 Mg/3 Ml Neb Soln NEB 01/11/21 13:20 6 ml ONETIME ONE Administration Sodium Chloride 1,000 mls @ 999 mls/hr 01/11/21 12:56 01/11/21 13:10 Normal Saline IV 01/11/21 13:56 999 mls/hr .BOLUS ONE Administration - Re-Assessments/Exams Free Text/Narrative Re-Assessment/Exam: 01/11/21 14:26 I have discussed the lab, exam adn ekg findings. Although the chest xray appears clear, the pts sob, productive cough, elevated crp and white count with left sift suggest possible pulmonary infection. I will cover her with levaquin and steroids. Departure - Departure Time of Disposition: 14:27 Disposition: Home, Self-Care 01 Condition: Good Clinical Impression: COPD with acute exacerbation - Discharge Information *PRESCRIPTION DRUG MONITORING PROGRAM REVIEWED*: Not Applicable *COPY OF PRESCRIPTION DRUG MONITORING REPORT IN PATIENT VANNA: Not Applicable Instructions: Chronic Obstructive Pulmonary Disease Exacerbation, [id number] Forms: ED Department Discharge Additional Instructions: RX: Levaquin RX: Prednisone Use tylenol and motrin for fever and pain control as needed. If any new symptoms or concerns develop contact your primary care facility or return to the ER. Sepsis Event Note (ED) - Evaluation Sepsis Screening Result: No Definite Risk - Focused Exam Vital Signs: Vital Signs Temp Pulse Resp BP Pulse Ox 01/11/21 12:30 98.8 F 88 20 130/66 100 - My Orders Last 24 Hours: My Active Orders 01/11/21 12:54 UA RFX USMAN AND CULT IF INDIC [URIN] Stat Sodium Chloride 0.9% [Saline Flush] 10 ml FLUSH ASDIRECTED PRN Peripheral IV Insertion Adult [OM.PC] Routine 01/11/21 12:55 Peripheral IV Care [RC] . DIRECTED 01/11/21 13:19 RT Aerosol Therapy [RC] ASDIRECTED - Assessment/Plan Last 24 Hours: My Active Orders 01/11/21 12:54 UA RFX USMAN AND CULT IF INDIC [URIN] Stat Sodium Chloride 0.9% [Saline Flush] 10 ml FLUSH ASDIRECTED PRN Peripheral IV Insertion Adult [OM.PC] Routine 01/11/21 12:55 Peripheral IV Care [RC] . DIRECTED 01/11/21 13:19 RT Aerosol Therapy [RC] ASDIRECTED
[2021-01-11] MEDS ORDERED: Albuterol/Ipratropium 3.0-0.5 MG/3 ML Neb Soln NEB ONE (13:19)
[2021-01-11 13:43] LABS: ANION GAP 13.8 mEq/L (7-13); CHLORIDE,CL 101 mmol/L (98-107); SODIUM,NA 140 mmol/L (136-145)
--- NOTE | 2021-01-11 14:14 | CR ---
PROCEDURE INFORMATION: Exam: XR Chest Exam date and time: 01/11/2021 1:29 PM Age: 55 years old Clinical indication: Cough and fever and shortness of breath; Additional info: Cough, fever, SOB TECHNIQUE: Imaging protocol: XR of the chest. Views: 2 views. COMPARISON: CR Chest 2V 10/02/2018 8:16 PM FINDINGS: Lungs: There is mild increase in interstitial markings within the lungs. This is nonspecific. No pneumonia or pulmonary edema is present. Pleural spaces: Unremarkable. No pleural effusion. No pneumothorax. Heart/Mediastinum: Unremarkable. No cardiomegaly. Bones/joints: Unremarkable. IMPRESSION: Chronic appearing interstitial change without acute cardiopulmonary disease identified.
[2021-01-11] MEDS ORDERED: methylPREDNISolone Sodium Succinate 125 MG/2 ML SDV IVPUSH ONE (14:38)
== END 2021-01-11 14:53 | disposition home or self-care (01) ==
LOC: DL.ED 12:16
DX: J44.1 Chronic obstructive pulmonary disease with (acute) exacerbation (principal); Z88.6 Allergy status to analgesic agent; Z88.0 Allergy status to penicillin; Z79.899 Other long term (current) drug therapy; Z87.891 Personal history of nicotine dependence
CPT/HCPCS: 36415; 71046; 80053; 83605; 83735; 84100; 84443; 84484; 85025; 86140; 93005; 94640; 96374; 99285; J2930; J7030; J7620-GY

== ENCOUNTER 2021-05-14 11:41 | Emergency (ER) | payer BC, MEDICAID ==
[2021-05-14 12:02] VITALS: BP 116/69; PULSE 81
[2021-05-14 12:55] LABS: RESPIRATORY SYNCYTIAL VIR NAA NEGATIVE (NEGATIVE)
[2021-05-14 12:57] LABS: CORONAVIRUS COVID-19 NAA POSITIVE (NEGATIVE)
== END 2021-05-14 13:04 | disposition home or self-care (01) ==
LOC: DL.ED 11:41
DX: U07.1 COVID-19 (principal); J44.1 Chronic obstructive pulmonary disease with (acute) exacerbation; I10 Essential (primary) hypertension; Z88.0 Allergy status to penicillin; Z88.8 Allergy status to other drugs, medicaments and biological substances
CPT/HCPCS: 0241U; 36415; 71045; 85025; 99284; 99285

== ENCOUNTER 2021-06-18 10:09 | Inpatient (IN) | payer BC, MEDICAID ==
[2021-06-18] MEDS ORDERED: Albuterol/Ipratropium 3.0-0.5 MG/3 ML Neb Soln NEB ONE (10:33)
[2021-06-18] MEDS ORDERED: methylPREDNISolone Sodium Succinate 125 MG/2 ML SDV IVPUSH ONE (10:33)
[2021-06-18] MEDS ORDERED: Codeine/Promethazine 10-6.25 MG/5 ML Syrup 5 ML UD Cup PO ONE (10:34)
[2021-06-18 11:17] LABS: ANION GAP 13.9 mEq/L (7-13); CHLORIDE,CL 98 mmol/L (98-107); ESTIMATED GFR > 60; SODIUM,NA 137 mmol/L (136-145)
[2021-06-18] MEDS ORDERED: Iopamidol 612 MG/ML 100 ML Bottle IVPUSH ONE (11:17)
[2021-06-18] MEDS: Sodium Chloride 0.9% 10 ML Syringe FLUSH PRN (11:22)
[2021-06-18] MEDS ORDERED: Albuterol/Ipratropium 3.0-0.5 MG/3 ML Neb Soln NEB PRN (15:00)
[2021-06-18] MEDS ORDERED: 50% Dextrose in Water 50 ML Syringe IVPUSH PRN (15:14)
[2021-06-18] MEDS ORDERED: Temazepam 15 MG Cap PO PRN (15:20)
[2021-06-18] MEDS ORDERED: Ondansetron 4 MG/2 ML SDV IVPUSH PRN (15:20)
[2021-06-18] MEDS ORDERED: oxyCODONE 5 MG Tab PO PRN (15:20)
[2021-06-18] MEDS: methylPREDNISolone Sodium Succinate 40 MG/1 ML SDV IVPUSH SCH ×2 (15:37→22:45)
[2021-06-18] MEDS: Levofloxacin/Dextrose 5%-Water 750 MG in Premix Bag 1 BAG IV SCH (15:37)
[2021-06-18] MEDS: Budesonide 0.5 MG/2 ML Neb Susp NEB SCH (17:49)
[2021-06-18] MEDS: Albuterol/Ipratropium 3.0-0.5 MG/3 ML Neb Soln NEB SCH (17:49)
[2021-06-18] MEDS: Insulin Lispro 100 Units/ML 3 ML Vial SUBCUT SCH ×2 (18:10→21:48)
[2021-06-18] MEDS: Heparin Sodium 5,000 Units/ML Vial SUBCUT SCH (22:46)
[2021-06-19] MEDS: Albuterol/Ipratropium 3.0-0.5 MG/3 ML Neb Soln NEB SCH ×4 (02:26→18:05)
[2021-06-19] MEDS: hydrOXYzine HCl 25 MG Tab PO PRN ×2 (02:50→18:13)
[2021-06-19] MEDS: Acetaminophen 325 MG Tab PO PRN ×2 (02:51→09:17)
[2021-06-19 06:02] LABS: ANION GAP 14.6 mEq/L (7-13); CHLORIDE,CL 101 mmol/L (98-107); ESTIMATED GFR > 60; SODIUM,NA 139 mmol/L (136-145)
[2021-06-19] MEDS: methylPREDNISolone Sodium Succinate 40 MG/1 ML SDV IVPUSH SCH ×3 (06:29→22:13)
[2021-06-19] MEDS: Heparin Sodium 5,000 Units/ML Vial SUBCUT SCH ×3 (06:30→22:13)
[2021-06-19] MEDS: Budesonide 0.5 MG/2 ML Neb Susp NEB SCH ×2 (07:40→18:05)
[2021-06-19] MEDS: Nicotine 7 MG/24 Hr Patch TRDERM SCH (09:00)
[2021-06-19] MEDS: Insulin Lispro 100 Units/ML 3 ML Vial SUBCUT SCH ×4 (09:04→22:17)
[2021-06-19] MEDS: Sodium Chloride 0.9% 10 ML Syringe FLUSH PRN ×2 (09:19→22:16)
[2021-06-19] MEDS: Levofloxacin/Dextrose 5%-Water 750 MG in Premix Bag 1 BAG IV SCH (15:14)
[2021-06-19] MEDS: DILTIAZEM 300 MG PO SCH (15:46)
[2021-06-20] MEDS: Albuterol/Ipratropium 3.0-0.5 MG/3 ML Neb Soln NEB SCH ×4 (01:58→17:59)
[2021-06-20] MEDS: Heparin Sodium 5,000 Units/ML Vial SUBCUT SCH ×3 (05:19→22:13)
[2021-06-20] MEDS: methylPREDNISolone Sodium Succinate 40 MG/1 ML SDV IVPUSH SCH ×3 (06:24→22:14)
[2021-06-20 06:55] LABS: ANION GAP 11.3 mEq/L (7-13); CHLORIDE,CL 104 mmol/L (98-107); ESTIMATED GFR > 60; SODIUM,NA 139 mmol/L (136-145)
[2021-06-20] MEDS: Budesonide 0.5 MG/2 ML Neb Susp NEB SCH ×2 (08:00→17:59)
[2021-06-20] MEDS: Nicotine 7 MG/24 Hr Patch TRDERM SCH (08:34)
[2021-06-20] MEDS: DILTIAZEM 300 MG PO SCH (08:35)
[2021-06-20] MEDS: Insulin Lispro 100 Units/ML 3 ML Vial SUBCUT SCH ×4 (08:36→20:51)
[2021-06-20] MEDS: hydrOXYzine HCl 25 MG Tab PO PRN (12:34)
[2021-06-20] MEDS: Levofloxacin/Dextrose 5%-Water 750 MG in Premix Bag 1 BAG IV SCH (15:07)
[2021-06-20] MEDS: Sodium Chloride 0.9% 10 ML Syringe FLUSH PRN (22:14)
[2021-06-21] MEDS: Albuterol/Ipratropium 3.0-0.5 MG/3 ML Neb Soln NEB SCH ×3 (01:13→13:10)
[2021-06-21 05:49] LABS: ANION GAP 14.7 mEq/L (7-13); CHLORIDE,CL 100 mmol/L (98-107); ESTIMATED GFR > 60; SODIUM,NA 139 mmol/L (136-145)
[2021-06-21] MEDS: Heparin Sodium 5,000 Units/ML Vial SUBCUT SCH ×2 (06:27→14:15)
[2021-06-21 07:48] VITALS: BP 117/56; PULSE 67
[2021-06-21] MEDS: methylPREDNISolone Sodium Succinate 40 MG/1 ML SDV IVPUSH SCH (08:36)
[2021-06-21] MEDS: Nicotine 7 MG/24 Hr Patch TRDERM SCH (08:36)
[2021-06-21] MEDS: Budesonide 0.5 MG/2 ML Neb Susp NEB SCH (08:36)
[2021-06-21] MEDS: Insulin Lispro 100 Units/ML 3 ML Vial SUBCUT SCH ×2 (08:40→11:48)
[2021-06-21] MEDS: DILTIAZEM 300 MG PO SCH (08:41)
[2021-06-21] MEDS ORDERED: guaiFENesin/Dextromethorphan 100-10 MG/5 ML Soln 5 ML Cup PO PRN (11:08)
[2021-06-21] MEDS ORDERED: FLU VAC QS 21-22(6MS UP)CEL/PF 60 MCG/0.5 ML SYRINGE IM ONE (12:00)
[2021-06-21] MEDS ORDERED: Levofloxacin/Dextrose 5%-Water 750 MG in Premix Bag 1 BAG IV SCH (12:00)
== END 2021-06-21 14:33 | disposition home or self-care (01) | DRG 139 ==
LOC: DL.ED 10:09 → DL.MS 13:15
PROVIDERS: ADMIT Internal Medicine; ATTEND Internal Medicine
DX: J18.9 Pneumonia, unspecified organism (principal); J96.21 Acute and chronic respiratory failure with hypoxia; J44.1 Chronic obstructive pulmonary disease with (acute) exacerbation; T38.0X5A Adverse effect of glucocorticoids and synthetic analogues, initial encounter; D72.828 Other elevated white blood cell count; I48.91 Unspecified atrial fibrillation; R73.9 Hyperglycemia, unspecified; Z79.52 Long term (current) use of systemic steroids; Z79.899 Other long term (current) drug therapy; Z88.0 Allergy status to penicillin; Z88.8 Allergy status to other drugs, medicaments and biological substances; Z90.49 Acquired absence of other specified parts of digestive tract; Z87.891 Personal history of nicotine dependence; Z86.16 Personal history of COVID-19; J44.0 Chronic obstructive pulmonary disease with (acute) lower respiratory infection; Z87.01 Personal history of pneumonia (recurrent); I27.20 Pulmonary hypertension, unspecified; H54.7 Unspecified visual loss; Z86.19 Personal history of other infectious and parasitic diseases; Z20.822 Contact with and (suspected) exposure to COVID-19
CPT/HCPCS: 36415; 71260; 80048; 80053; 82947; 83605; 83735; 83880; 84484; 85025; 85027; 85379; 87040; 90674; 93005; 93010; 94640; 96374; 99222; 99232; 99233; 99238; 99285; 99285-25; A9270-GY; G0008; J1644; J1815-GY; J1956; J2920; J2930; J3490; J7620-GY; Q9967; U0002

== ENCOUNTER 2022-07-31 07:31 | Emergency (ER) | payer BC, MEDICAID ==
[2022-07-31 07:41] VITALS: BP 125/75; PULSE 87
[2022-07-31 08:16] LABS: ANION GAP 12.8 mEq/L (7-13)
[2022-07-31 10:04] LABS: CORONAVIRUS COVID-19 NAA NEGATIVE (NEGATIVE); RESPIRATORY SYNCYTIAL VIR NAA NEGATIVE (NEGATIVE)
== END 2022-07-31 10:31 | disposition home or self-care (01) ==
LOC: DL.ED 07:31
DX: J44.1 Chronic obstructive pulmonary disease with (acute) exacerbation (principal); I10 Essential (primary) hypertension; Z88.0 Allergy status to penicillin; Z88.8 Allergy status to other drugs, medicaments and biological substances; Z86.16 Personal history of COVID-19; Z87.891 Personal history of nicotine dependence; Z20.822 Contact with and (suspected) exposure to COVID-19
CPT/HCPCS: 0241U; 36415; 71045; 80053; 83735; 83880; 85025; 99284; 99285

== ENCOUNTER 2022-08-15 13:01 | Emergency (ER) | payer BC, MEDICAID, MEDICARE ==
[2022-08-15] MEDS ORDERED: methylPREDNISolone Sodium Succinate 125 MG/2 ML SDV IV ONE (13:02)
[2022-08-15] MEDS ORDERED: Albuterol/Ipratropium 3.0-0.5 MG/3 ML Neb Soln INH ONE (13:02)
[2022-08-15] MEDS ORDERED: Magnesium Sulfate/Water 2 GM/50 ML Premix Bag IV ONE (13:02)
[2022-08-15] MEDS ORDERED: Etomidate 2 MG/ML 10 ML SDV IV ONE (13:13)
[2022-08-15] MEDS ORDERED: Sodium Chloride 0.9% 10 ML Syringe FLUSH PRN (13:24)
[2022-08-15] MEDS ORDERED: Midazolam 1 MG/ML 2 ML SDV IVPUSH ONE (13:34)
[2022-08-15] MEDS ORDERED: fentaNYL 100 MCG/2 ML SDV IVPUSH ONE (13:36)
[2022-08-15 13:44] LABS: HEMOGLOBIN 12.7 g/dL (12.0-16.0); MEAN CORPUSCULAR HEMOGLOBIN 29.6 pg (27.0-34.0); MEAN CORPUSCULAR HGB CONC 30.2 g/dL (33.0-35.0); MEAN CORPUSCULAR VOLUME 97.9 fL (80-100); PLATELET COUNT,PLT 411 10^3/uL (150-450); RED BLOOD CELL COUNT 4.29 10^6/uL (4.2-5.4); WHITE BLOOD CELL COUNT,WBC 22.4 10^3/uL (5.0-10.0)
[2022-08-15 13:45] LABS: ALANINE AMINOTRANSFERASE,ALT 27 U/L (14-59); ALBUMIN 3.3 g/dL (3.4-5.0); ALKALINE PHOSPHATASE 128 U/L (46-116); ASPARTATE AMNIOTRANSFERASE,AST 33 U/L (15-37); BILIRUBIN TOTAL 0.1 mg/dL (0.2-1.0); BLOOD UREA NITROGEN,BUN 11 mg/dL (7-18); BUN/CREATININE RATIO 17.5 (No establ ref range); CARBON DIOXIDE,CO2 32 mmol/L (21-32); CHLORIDE,CL 101 mmol/L (98-107); CREATININE 0.63 mg/dL (0.55-1.02); GLUCOSE RANDOM 207 mg/dL (70-99); PROTEIN TOTAL,TP 7.3 g/dL (6.4-8.2); SODIUM,NA 138 mmol/L (136-145)
[2022-08-15] MEDS ORDERED: Sodium Chloride 0.9% 1,000 ML IV ONE (13:45)
[2022-08-15] MEDS ORDERED: Midazolam 50 MG in Sodium Chloride 0.9% 40 ML IV SCH (13:45)
[2022-08-15 13:48] LABS: A/G RATIO 0.83; ESTIMATED GFR 103 mL/min (>=60)
[2022-08-15 13:58] VITALS: BP 167/86; PULSE 100
[2022-08-15 13:58] LABS: BAND PERCENT MAN 3 %; LYMPHOCYTES PERCENT MAN 13 % (20-50); MONOCYTES PERCENT MAN 12 % (2-8); SEG NEUTROPHILS PERCENT MAN 72 % (42-75)
[2022-08-15 14:00] LABS: B-TYPE NATRIURETIC PEPTIDE,BNP 274 pg/ml (0-100)
[2022-08-15] MEDS ORDERED: Cefepime 1 GM Vial IVPUSH ONE (14:00)
[2022-08-15 14:15] LABS: BICARBONATE,ARTERIAL 33.9 mmol/L (22-26); O2 DELIVERY DEVICE BIPAP; O2 SATURATION ARTERIAL 100 % (95-100); PCO2 ARTERIAL 60 mmHg (35-45); PH,ARTERIAL 7.36 (7.35-7.45); PO2 ARTERIAL 230 mmHg (70-100)
[2022-08-15 14:16] LABS: BASE EXCESS ARTERIAL 8 mmol/L ((-2)-(+3))
[2022-08-15] MEDS ORDERED: Sodium Chloride 0.9% 1,000 ML IV SCH (15:00)
[2022-08-16 11:08] LABS: ALLEN TEST NOT PERFORMED
== END 2022-08-15 15:45 ==
LOC: DL.ED 13:01
DX: J44.1 Chronic obstructive pulmonary disease with (acute) exacerbation (principal); J96.21 Acute and chronic respiratory failure with hypoxia; J96.22 Acute and chronic respiratory failure with hypercapnia; I10 Essential (primary) hypertension; F17.210 Nicotine dependence, cigarettes, uncomplicated; Z88.0 Allergy status to penicillin; Z88.8 Allergy status to other drugs, medicaments and biological substances; Z86.16 Personal history of COVID-19
CPT/HCPCS: 31500; 36415; 36600; 71045; 80053; 82803; 82947; 83605; 83880; 84484; 85025; 87040; 96361; 96374; 96375; 99285; 99285-25; J0692; J2250; J2930; J3010; J3475; J3490; J7030; J7620-GY

== ENCOUNTER 2023-09-26 10:43 | Inpatient (IN) | payer BC, MEDICAID ==
[2023-09-26] MEDS: Sodium Chloride 0.9% 10 ML Syringe FLUSH PRN (11:11)
[2023-09-26] MEDS: Albuterol/Ipratropium 3.0-0.5 MG/3 ML Neb Soln NEB ONE ×2 (11:11→11:20)
[2023-09-26] MEDS: methylPREDNISolone Sodium Succinate 125 MG/2 ML SDV IVPUSH ONE (11:11)
[2023-09-26 11:12] LABS: O2 DELIVERY DEVICE NASAL CANNULA
[2023-09-26 11:21] LABS: HEMATOCRIT 40.3 % (37.0-47.0); MEAN CORPUSCULAR HEMOGLOBIN 27.5 pg (27.0-34.0); MEAN CORPUSCULAR HGB CONC 32.3 g/dL (33.0-35.0); MEAN CORPUSCULAR VOLUME 85.2 fL (80-100); PLATELET COUNT,PLT 475 10^3/uL (150-450); RED BLOOD CELL COUNT 4.73 10^6/uL (4.2-5.4); WHITE BLOOD CELL COUNT,WBC 16.3 10^3/uL (5.0-10.0)
[2023-09-26 11:26] LABS: BASE EXCESS VENOUS 5.2 mmol/l ((-2)-(+3)); BICARBONATE,VENOUS 31 mmol/l (19-25); O2 SATURATION VENOUS 74.7 % (60-80); PCO2 VENOUS 54 mmHg (41-51); PH,VENOUS 7.38 (7.31-7.41); PO2 VENOUS 45 mmHg (35-42)
[2023-09-26 11:29] LABS: A/G RATIO 1.2; ALANINE AMINOTRANSFERASE,ALT 17 U/L (14-59); ALBUMIN 4.2 g/dL (3.4-5.0); ALKALINE PHOSPHATASE 118 U/L (46-116); ANION GAP 16.9 mEq/L (7-13); ASPARTATE AMNIOTRANSFERASE,AST 11 U/L (15-37); BILIRUBIN TOTAL 0.3 mg/dL (0.2-1.0); BLOOD UREA NITROGEN,BUN 13 mg/dL (7-18); BUN/CREATININE RATIO 13.5 (No establ ref range); CALCIUM 9.8 mg/dL (8.5-10.1); CARBON DIOXIDE,CO2 28 mmol/L (21-32); CHLORIDE,CL 97 mmol/L (98-107); CREATININE 0.96 mg/dL (0.55-1.02); EST CRCL DRUG DOSING (CG) 49.29 mL/min; GLUCOSE RANDOM 116 mg/dL (70-99); MAGNESIUM 2.1 mg/dL (1.8-2.4); POTASSIUM,K 2.9 mmol/L (3.5-5.1); PROTEIN TOTAL,TP 7.7 g/dL (6.4-8.2); SODIUM,NA 139 mmol/L (136-145)
[2023-09-26 11:35] LABS: PROTHROMBIN TIME 9.9 SEC (9.0-12.0); PTT,PARTIAL THROMBOPLSTIN TIME 23.9 SEC (22.0-34.0)
[2023-09-26 11:38] LABS: C-REACTIVE PROTEIN < 0.50 ng/dL (<=0.50); ESTIMATED GFR 68 mL/min (>=60); LACTIC ACID 2.1 mmol/L (0.4-2.0)
[2023-09-26 11:40] LABS: B-TYPE NATRIURETIC PEPTIDE,BNP 61 pg/ml (0-100)
[2023-09-26] MEDS: Potassium Chloride 10 MEQ Tab.ER PO ONE (11:50)
[2023-09-26] MEDS: NS with KCl 40mEq 1,000 ML IV SCH (11:50)
[2023-09-26 12:05] LABS: BASOPHILS PERCENT AUTO 0.2 % (0.0-1.0); EOSINOPHILS PERCENT AUTO 0.5 % (1.0-3.0); LYMPHOCYTES PERCENT AUTO 24.8 % (20.5-50.1); MONOCYTES PERCENT AUTO 7.6 % (2-8); NEUTROPHILS PERCENT AUTO 66.9 % (42.2-75.2); SEG NEUTROPHILS PERCENT MAN 64 % (42-75)
[2023-09-26 12:06] LABS: LYMPHOCYTES PERCENT MAN 25 % (20-50); MONOCYTES PERCENT MAN 11 % (2-8)
[2023-09-26] MEDS: Levofloxacin/Dextrose 5%-Water 750 MG in Premix Bag 1 BAG IV ONE (12:38)
[2023-09-26] MEDS: Potassium Chloride 20 MEQ in Premix Bag 1 BAG IV ONE (13:20)
[2023-09-26] MEDS ORDERED: Acetaminophen/HYDROcodone 325-5 MG Tab PO PRN (16:02)
[2023-09-26] MEDS ORDERED: Acetaminophen 325 MG Tab PO PRN (16:02)
[2023-09-26] MEDS ORDERED: HYDROmorphone 0.5 MG/0.5 ML Syringe IVPUSH PRN (16:07)
[2023-09-26] MEDS ORDERED: Ondansetron 4 MG/2 ML SDV IVPUSH PRN (16:07)
[2023-09-26] MEDS ORDERED: Polyethylene Glycol 3350 Powder 17 GM Packet PO PRN (16:07)
[2023-09-26] MEDS ORDERED: Albuterol/Ipratropium 3.0-0.5 MG/3 ML Neb Soln NEB PRN (16:07)
[2023-09-26] MEDS ORDERED: Naloxone 2 MG/2 ML Syringe IVPUSH PRN (16:07)
[2023-09-26] MEDS ORDERED: Sennosides/Docusate Sodium 50-8.6 MG Tab PO PRN (16:07)
[2023-09-26] MEDS ORDERED: Magnesium Hydroxide 400 MG/5 ML Susp 30 ML Cup PO PRN (16:07)
[2023-09-26] MEDS ORDERED: Metoprolol Tartrate 5 MG/5 ML SDV IVPUSH PRN (16:10)
[2023-09-26] MEDS ORDERED: hydrALAZINE 20 MG/ML SDV IVPUSH PRN (16:10)
[2023-09-26] MEDS ORDERED: guaiFENesin/Dextromethorphan 100-10 MG/5 ML Soln 5 ML Cup PO PRN (16:10)
[2023-09-26] MEDS ORDERED: 50% Dextrose in Water 50 ML Syringe IVPUSH PRN (16:33)
[2023-09-26] MEDS ORDERED: Glucagon,Human Recombinant 1 MG Vial IM PRN (16:33)
[2023-09-26] MEDS: acetaZOLAMIDE 500 MG Vial IVPUSH ONE (16:56)
[2023-09-26] MEDS: Magnesium Sulfate/Water 2 GM in Premix Bag 1 BAG IV ONE (17:08)
[2023-09-26] MEDS: methylPREDNISolone Sodium Succinate 125 MG/2 ML SDV IVPUSH SCH (17:08)
[2023-09-26] MEDS: Insulin Lispro 100 Units/ML 3 ML Vial SUBCUT SCH (17:21)
[2023-09-26] MEDS: Formoterol/Mometasone 200-5 MCG 8.8 GM Inhaler INH SCH (17:35)
[2023-09-26] MEDS: Magnesium Oxide 400 MG Tab PO SCH (17:35)
[2023-09-26] MEDS: Aminophylline 500 MG in Sodium Chloride 0.9% 500 ML IV SCH (17:45)
[2023-09-26] MEDS: hydrOXYzine HCl 25 MG Tab PO PRN (17:45)
[2023-09-26] MEDS: Sodium Chloride 0.9% 1,000 ML IV SCH (18:30)
[2023-09-26] MEDS ORDERED: guaiFENesin 600 MG Tab.ER PO SCH (21:00)
[2023-09-26] MEDS: Albuterol/Ipratropium 3.0-0.5 MG/3 ML Neb Soln NEB SCH (21:29)
[2023-09-26] MEDS: guaiFENesin 600 MG Tab.ER PO SCH (21:30)
[2023-09-26] MEDS: acetaZOLAMIDE 250 MG Tab PO SCH (21:30)
[2023-09-27] MEDS: Tiotropium Bromide 4 GM Inhalation Spray (2.5mcg/1 dose; 10 doses) INH SCH (05:25)
[2023-09-27 06:36] LABS: BASOPHILS PERCENT AUTO 0.1 % (0.0-1.0); HEMATOCRIT 36.4 % (37.0-47.0); HEMOGLOBIN 11.3 g/dL (12.0-16.0); LYMPHOCYTES PERCENT AUTO 11.9 % (20.5-50.1); MEAN CORPUSCULAR HEMOGLOBIN 27.8 pg (27.0-34.0); MEAN CORPUSCULAR VOLUME 89.7 fL (80-100); MONOCYTES PERCENT AUTO 1.5 % (2-8); NEUTROPHILS PERCENT AUTO 86.5 % (42.2-75.2); PLATELET COUNT,PLT 337 10^3/uL (150-450); RED BLOOD CELL COUNT 4.06 10^6/uL (4.2-5.4); WHITE BLOOD CELL COUNT,WBC 9.5 10^3/uL (5.0-10.0)
[2023-09-27 06:59] LABS: A/G RATIO 1.1; ALANINE AMINOTRANSFERASE,ALT 18 U/L (14-59); ALBUMIN 3.6 g/dL (3.4-5.0); ALKALINE PHOSPHATASE 102 U/L (46-116); ANION GAP 18.2 mEq/L (7-13); ASPARTATE AMNIOTRANSFERASE,AST 11 U/L (15-37); BILIRUBIN TOTAL 0.2 mg/dL (0.2-1.0); BLOOD UREA NITROGEN,BUN 9 mg/dL (7-18); BUN/CREATININE RATIO 13.8 (No establ ref range); CALCIUM 8.7 mg/dL (8.5-10.1); CARBON DIOXIDE,CO2 20 mmol/L (21-32); CHLORIDE,CL 107 mmol/L (98-107); CREATININE 0.65 mg/dL (0.55-1.02); EST CRCL DRUG DOSING (CG) 72.79 mL/min; GLUCOSE RANDOM 161 mg/dL (70-99); MAGNESIUM 2.7 mg/dL (1.8-2.4); POTASSIUM,K 4.2 mmol/L (3.5-5.1); SODIUM,NA 141 mmol/L (136-145)
[2023-09-27 07:22] LABS: C-REACTIVE PROTEIN < 0.50 ng/dL (<=0.50); ESTIMATED GFR 101 mL/min (>=60)
[2023-09-27] MEDS: Diltiazem 180 MG Cap.CD PO SCH (08:24)
[2023-09-27] MEDS: Zolpidem 5 MG Tab PO PRN (21:39)
[2023-09-28 06:57] LABS: O2 DELIVERY DEVICE NASAL CANNULA
[2023-09-28 07:18] LABS: BICARBONATE,VENOUS 19 mmol/l (19-25); O2 SATURATION VENOUS 99.5 % (60-80); PCO2 VENOUS 39 mmHg (41-51); PO2 VENOUS 165 mmHg (35-42)
[2023-09-28 07:19] LABS: BASE EXCESS VENOUS -6.7 mmol/l ((-2)-(+3))
[2023-09-28 07:49] LABS: HEMATOCRIT 34.6 % (37.0-47.0); HEMOGLOBIN 10.6 g/dL (12.0-16.0); LYMPHOCYTES PERCENT AUTO 5.2 % (20.5-50.1); MEAN CORPUSCULAR HEMOGLOBIN 27.7 pg (27.0-34.0); MEAN CORPUSCULAR HGB CONC 30.6 g/dL (33.0-35.0); MEAN CORPUSCULAR VOLUME 90.3 fL (80-100); NEUTROPHILS PERCENT AUTO 92.8 % (42.2-75.2); PLATELET COUNT,PLT 356 10^3/uL (150-450); RED BLOOD CELL COUNT 3.83 10^6/uL (4.2-5.4); WHITE BLOOD CELL COUNT,WBC 20.8 10^3/uL (5.0-10.0)
[2023-09-28 07:54] LABS: ANION GAP 16.6 mEq/L (7-13); BLOOD UREA NITROGEN,BUN 24 mg/dL (7-18); BUN/CREATININE RATIO 37.5 (No establ ref range); CARBON DIOXIDE,CO2 19 mmol/L (21-32); CHLORIDE,CL 109 mmol/L (98-107); CREATININE 0.64 mg/dL (0.55-1.02); EST CRCL DRUG DOSING (CG) 73.93 mL/min; ESTIMATED GFR 101 mL/min (>=60); GLUCOSE RANDOM 158 mg/dL (70-99); POTASSIUM,K 3.6 mmol/L (3.5-5.1); SODIUM,NA 141 mmol/L (136-145)
[2023-09-28 07:55] LABS: ALBUMIN 3.2 g/dL (3.4-5.0); BILIRUBIN TOTAL 0.2 mg/dL (0.2-1.0); CALCIUM 8.9 mg/dL (8.5-10.1); PROTEIN TOTAL,TP 6.4 g/dL (6.4-8.2)
[2023-09-28 07:56] LABS: ALANINE AMINOTRANSFERASE,ALT 17 U/L (14-59); ALKALINE PHOSPHATASE 86 U/L (46-116); ASPARTATE AMNIOTRANSFERASE,AST 11 U/L (15-37); C-REACTIVE PROTEIN < 0.50 ng/dL (<=0.50); MAGNESIUM 2.4 mg/dL (1.8-2.4)
[2023-09-28 09:04] LABS: LYMPHOCYTES PERCENT MAN 7 % (20-50); SEG NEUTROPHILS PERCENT MAN 93 % (42-75)
[2023-09-28] MEDS: Albuterol/Ipratropium 3.0-0.5 MG/3 ML Neb Soln NEB SCH (15:16)
[2023-09-28] MEDS: Zolpidem 5 MG Tab PO PRN (21:00)
[2023-09-28] MEDS: Melatonin 3 MG Tab PO SCH (21:25)
[2023-09-28] MEDS: LORazepam 0.5 MG Tab PO PRN (21:25)
[2023-09-29 07:13] LABS: ALANINE AMINOTRANSFERASE,ALT 18 U/L (14-59); ALBUMIN 3.1 g/dL (3.4-5.0); ALKALINE PHOSPHATASE 78 U/L (46-116); ANION GAP 15.1 mEq/L (7-13); ASPARTATE AMNIOTRANSFERASE,AST 10 U/L (15-37); BILIRUBIN TOTAL 0.2 mg/dL (0.2-1.0); BLOOD UREA NITROGEN,BUN 28 mg/dL (7-18); BUN/CREATININE RATIO 45.9 (No establ ref range); CALCIUM 8.4 mg/dL (8.5-10.1); CARBON DIOXIDE,CO2 21 mmol/L (21-32); CHLORIDE,CL 110 mmol/L (98-107); CREATININE 0.61 mg/dL (0.55-1.02); EST CRCL DRUG DOSING (CG) 77.57 mL/min; GLUCOSE RANDOM 152 mg/dL (70-99); MAGNESIUM 2.5 mg/dL (1.8-2.4); POTASSIUM,K 3.1 mmol/L (3.5-5.1); PROTEIN TOTAL,TP 6.3 g/dL (6.4-8.2); SODIUM,NA 143 mmol/L (136-145)
[2023-09-29 07:24] LABS: A/G RATIO 0.97; C-REACTIVE PROTEIN < 0.50 ng/dL (<=0.50); ESTIMATED GFR 102 mL/min (>=60)
[2023-09-29] MEDS: Theophylline 300 MG Tab.ER PO SCH (09:08)
[2023-09-29 09:59] LABS: BAND PERCENT MAN 1 %; LYMPHOCYTES PERCENT MAN 4 % (20-50); MONOCYTES PERCENT MAN 2 % (2-8); SEG NEUTROPHILS PERCENT MAN 93 % (42-75)
[2023-09-29] MEDS: Potassium Chloride 10 MEQ Tab.ER PO ONE (17:40)
[2023-09-29] MEDS ORDERED: Melatonin 3 MG Tab PO SCH (21:00)
[2023-09-30 06:25] LABS: HEMATOCRIT 32.7 % (37.0-47.0); HEMOGLOBIN 10.3 g/dL (12.0-16.0); MEAN CORPUSCULAR HEMOGLOBIN 27.5 pg (27.0-34.0); MEAN CORPUSCULAR HGB CONC 31.5 g/dL (33.0-35.0); MEAN CORPUSCULAR VOLUME 87.4 fL (80-100); PLATELET COUNT,PLT 329 10^3/uL (150-450); RED BLOOD CELL COUNT 3.74 10^6/uL (4.2-5.4); WHITE BLOOD CELL COUNT,WBC 12.6 10^3/uL (5.0-10.0)
[2023-09-30 06:38] LABS: LYMPHOCYTES PERCENT AUTO 4.8 % (20.5-50.1); MONOCYTES PERCENT AUTO 2.3 % (2-8); NEUTROPHILS PERCENT AUTO 92.7 % (42.2-75.2)
[2023-09-30 06:39] LABS: BASOPHILS PERCENT AUTO 0.2 % (0.0-1.0)
[2023-09-30 06:47] LABS: ALANINE AMINOTRANSFERASE,ALT 18 U/L (14-59); ALBUMIN 2.9 g/dL (3.4-5.0); ALKALINE PHOSPHATASE 74 U/L (46-116); ANION GAP 8.6 mEq/L (7-13); ASPARTATE AMNIOTRANSFERASE,AST 10 U/L (15-37); BILIRUBIN TOTAL 0.2 mg/dL (0.2-1.0); BLOOD UREA NITROGEN,BUN 28 mg/dL (7-18); BUN/CREATININE RATIO 41.8 (No establ ref range); CALCIUM 8.7 mg/dL (8.5-10.1); CARBON DIOXIDE,CO2 26 mmol/L (21-32); CHLORIDE,CL 111 mmol/L (98-107); CREATININE 0.67 mg/dL (0.55-1.02); EST CRCL DRUG DOSING (CG) 70.62 mL/min; GLUCOSE RANDOM 177 mg/dL (70-99); MAGNESIUM 2.6 mg/dL (1.8-2.4); POTASSIUM,K 3.6 mmol/L (3.5-5.1); SODIUM,NA 142 mmol/L (136-145)
[2023-09-30 06:51] LABS: A/G RATIO 0.94; C-REACTIVE PROTEIN < 0.50 ng/dL (<=0.50); ESTIMATED GFR 100 mL/min (>=60)
[2023-09-30 07:25] LABS: LYMPHOCYTES PERCENT MAN 4 % (20-50); MONOCYTES PERCENT MAN 4 % (2-8); SEG NEUTROPHILS PERCENT MAN 92 % (42-75)
[2023-09-30] MEDS: Potassium Chloride 10 MEQ Tab.ER PO SCH (08:46)
[2023-10-01] MEDS: Calcium Carbonate 500 MG Tab.Chew PO PRN (00:17)
[2023-10-01] MEDS: Morphine 15 MG Tab.ER PO ONE (10:29)
[2023-10-01 12:44] VITALS: BP 118/67; PULSE 82
== END 2023-10-01 12:40 | disposition home or self-care (01) | DRG 139 ==
LOC: DL.ED 10:43 → DL.MS 12:56
PROVIDERS: ADMIT Internal Medicine; ATTEND Internal Medicine
DX: J18.9 Pneumonia, unspecified organism (principal); J96.21 Acute and chronic respiratory failure with hypoxia; J96.22 Acute and chronic respiratory failure with hypercapnia; J44.0 Chronic obstructive pulmonary disease with (acute) lower respiratory infection; J44.1 Chronic obstructive pulmonary disease with (acute) exacerbation; E87.20 Acidosis, unspecified; I27.20 Pulmonary hypertension, unspecified; E87.8 Other disorders of electrolyte and fluid balance, not elsewhere classified; Z99.81 Dependence on supplemental oxygen; H54.7 Unspecified visual loss; F41.9 Anxiety disorder, unspecified; D75.839 Thrombocytosis, unspecified; E87.6 Hypokalemia; R73.9 Hyperglycemia, unspecified; Z88.0 Allergy status to penicillin; Z88.8 Allergy status to other drugs, medicaments and biological substances; Z79.51 Long term (current) use of inhaled steroids; Z79.2 Long term (current) use of antibiotics; Z79.899 Other long term (current) drug therapy; Z86.16 Personal history of COVID-19; Z90.49 Acquired absence of other specified parts of digestive tract; Z98.890 Other specified postprocedural states; Z87.891 Personal history of nicotine dependence
CPT/HCPCS: 36415; 71045; 80053; 80198; 80202; 82803; 82947; 83605; 83735; 83880; 84145; 84484; 85025; 85610; 85730; 86140; 87040; 87804; 93005; 93010; 94010; 94060; 94640; 94664; 94667; 94668; 94760; 96365; 96375; 99284; 99285-25; A9270-GY; J0280; J1120; J1815-GY; J1956; J2919; J3370; J3475; J3480; J3490; J7030; J7040; J7050; J7620-GY; U0002

== ENCOUNTER 2024-01-11 07:27 | Inpatient (IN) | payer BC ==
[2024-01-11 08:04] LABS: HEMATOCRIT 39.5 % (37.0-47.0); HEMOGLOBIN 12.2 g/dL (12.0-16.0); MEAN CORPUSCULAR HEMOGLOBIN 28.6 pg (27.0-34.0); MEAN CORPUSCULAR HGB CONC 30.9 g/dL (33.0-35.0); MEAN CORPUSCULAR VOLUME 92.7 fL (80-100); PLATELET COUNT,PLT 279 10^3/uL (150-450); RED BLOOD CELL COUNT 4.26 10^6/uL (4.2-5.4); WHITE BLOOD CELL COUNT,WBC 17.2 10^3/uL (5.0-10.0)
[2024-01-11 08:12] LABS: BASOPHILS PERCENT AUTO 0.4 % (0.0-1.0); EOSINOPHILS PERCENT AUTO 0.3 % (1.0-3.0); MONOCYTES PERCENT AUTO 6.6 % (2-8); NEUTROPHILS PERCENT AUTO 76.7 % (42.2-75.2)
[2024-01-11] MEDS: Albuterol/Ipratropium 3.0-0.5 MG/3 ML Neb Soln NEB ONE (08:23)
[2024-01-11] MEDS: Dexamethasone 4 MG/ML SDV IVPUSH ONE (08:24)
[2024-01-11 08:28] LABS: B-TYPE NATRIURETIC PEPTIDE,BNP 38 pg/ml (0-100)
[2024-01-11 08:29] LABS: A/G RATIO 0.9; ALANINE AMINOTRANSFERASE,ALT 25 U/L (14-59); ALBUMIN 3.8 g/dL (3.4-5.0); ALKALINE PHOSPHATASE 153 U/L (46-116); ASPARTATE AMNIOTRANSFERASE,AST 16 U/L (15-37); BILIRUBIN TOTAL 0.4 mg/dL (0.2-1.0); BLOOD UREA NITROGEN,BUN 9 mg/dL (7-18); CALCIUM 9.7 mg/dL (8.5-10.1); CARBON DIOXIDE,CO2 29 mmol/L (21-32); CHLORIDE,CL 97 mmol/L (98-107); CREATININE 0.69 mg/dL (0.55-1.02); EST CRCL DRUG DOSING (CG) 68.57 mL/min; GLUCOSE RANDOM 103 mg/dL (70-99); PROTEIN TOTAL,TP 7.8 g/dL (6.4-8.2); SODIUM,NA 139 mmol/L (136-145)
[2024-01-11 08:30] LABS: ESTIMATED GFR 99 mL/min (>=60)
[2024-01-11 08:39] LABS: LYMPHOCYTES PERCENT MAN 12 % (20-50); MONOCYTES PERCENT MAN 9 % (2-8); SEG NEUTROPHILS PERCENT MAN 79 % (42-75)
[2024-01-11] MEDS: Albuterol 0.083% 2.5 MG/3 ML Neb Soln NEB ONE (09:16)
[2024-01-11] MEDS ORDERED: Morphine 15 MG Tab.ER PO PRN (13:30)
[2024-01-11] MEDS ORDERED: Albuterol 6.7 GM Inhaler INH PRN (13:30)
[2024-01-11] MEDS ORDERED: Naloxone HCl 4 MG Spray 2 Pack NAS SCH (13:30)
[2024-01-11] MEDS ORDERED: LORazepam 0.5 MG Tab PO PRN (13:30)
[2024-01-11] MEDS: predniSONE 20 MG Tab PO ONE (14:42)
[2024-01-11] MEDS: Azithromycin 250 MG Tab PO ONE (14:42)
[2024-01-11] MEDS: Iopamidol 755 Mg/ML 100 ML Bottle IVPUSH ONE (14:47)
[2024-01-11] MEDS: Formoterol/Mometasone 200-5 MCG 8.8 GM Inhaler INH SCH (18:10)
[2024-01-11] MEDS: hydrOXYzine HCl 25 MG Tab PO PRN (20:54)
[2024-01-11] MEDS: Famotidine 20 MG Tab PO SCH (20:54)
[2024-01-11] MEDS: Melatonin 3 MG Tab PO SCH (20:54)
[2024-01-12] MEDS: Tiotropium Bromide 4 GM Inhalation Spray (2.5mcg/1 dose; 10 doses) INH SCH (05:56)
[2024-01-12] MEDS: Diltiazem 180 MG Cap.CD PO SCH (08:45)
[2024-01-12] MEDS: predniSONE 20 MG Tab PO SCH (08:46)
[2024-01-12] MEDS: Azithromycin 250 MG Tab PO SCH (08:46)
[2024-01-12] MEDS: Enoxaparin 40 MG/0.4 ML Syringe SUBCUT SCH (08:47)
[2024-01-12] MEDS: Albuterol/Ipratropium 3.0-0.5 MG/3 ML Neb Soln INH PRN (08:51)
[2024-01-12] MEDS: Acetaminophen 500 MG Tab PO PRN (21:22)
[2024-01-13 06:20] LABS: HEMATOCRIT 32.1 % (37.0-47.0); HEMOGLOBIN 9.6 g/dL (12.0-16.0); MEAN CORPUSCULAR HEMOGLOBIN 28.7 pg (27.0-34.0); MEAN CORPUSCULAR HGB CONC 29.9 g/dL (33.0-35.0); MEAN CORPUSCULAR VOLUME 96.1 fL (80-100); RED BLOOD CELL COUNT 3.34 10^6/uL (4.2-5.4)
[2024-01-13 06:37] LABS: ANION GAP 8.1 mEq/L (7-13); CALCIUM 8.9 mg/dL (8.5-10.1); CREATININE 0.7 mg/dL (0.55-1.02); EST CRCL DRUG DOSING (CG) 64.49 mL/min; POTASSIUM,K 4.1 mmol/L (3.5-5.1)
[2024-01-13] MEDS ORDERED: FLU (Flulaval Triv) 24-25(6MOS UP)/PF 45 MCG/0.5 ML Syringe IM ONE (11:00)
[2024-01-13] MEDS: FLU (Flulaval Triv) 24-25(6MOS UP)/PF 45 MCG/0.5 ML Syringe IM ONE (13:06)
[2024-01-13 14:29] VITALS: BP 143/64; PULSE 90
== END 2024-01-13 13:20 | disposition home or self-care (01) | DRG 133 ==
LOC: DL.ED 07:27 → DL.MS 10:10 → DL.ED 11:30
PROVIDERS: ADMIT Internal Medicine; ATTEND Internal Medicine
DX: J96.21 Acute and chronic respiratory failure with hypoxia (principal); J44.0 Chronic obstructive pulmonary disease with (acute) lower respiratory infection; I48.91 Unspecified atrial fibrillation; H54.7 Unspecified visual loss; I27.20 Pulmonary hypertension, unspecified; I50.9 Heart failure, unspecified; F41.9 Anxiety disorder, unspecified; J44.1 Chronic obstructive pulmonary disease with (acute) exacerbation; Z88.0 Allergy status to penicillin; Z88.8 Allergy status to other drugs, medicaments and biological substances; Z79.51 Long term (current) use of inhaled steroids; Z79.899 Other long term (current) drug therapy; Z79.52 Long term (current) use of systemic steroids; Z86.16 Personal history of COVID-19; Z90.49 Acquired absence of other specified parts of digestive tract; Z98.890 Other specified postprocedural states; Z99.81 Dependence on supplemental oxygen
CPT/HCPCS: 36415; 71045; 71275; 80048; 80053; 83880; 84145; 84484; 85025; 85027; 85379; 90686; 93005; 93010; 96374; 99223; 99232; 99239; 99284; 99285-25; A9270-GY; G0008; J1100; J1650; J7512; J7613-GY; J7620-GY; Q9967

== ENCOUNTER 2024-06-05 11:47 | Inpatient (IN) | payer BC, MEDICARE ==
[2024-06-05] MEDS ORDERED: Sodium Chloride 0.9% 10 ML Syringe FLUSH PRN (11:58)
[2024-06-05] MEDS: Albuterol/Ipratropium 3.0-0.5 MG/3 ML Neb Soln NEB ONE (12:18)
[2024-06-05 12:28] LABS: BASOPHILS PERCENT AUTO 0.2 % (0.0-1.0); EOSINOPHILS PERCENT AUTO 1.3 % (1.0-3.0); HEMATOCRIT 35.8 % (37.0-47.0); HEMOGLOBIN 10.7 g/dL (12.0-16.0); MEAN CORPUSCULAR HEMOGLOBIN 26.8 pg (27.0-34.0); MEAN CORPUSCULAR HGB CONC 29.9 g/dL (33.0-35.0); MEAN CORPUSCULAR VOLUME 89.5 fL (80-100); MONOCYTES PERCENT AUTO 7.2 % (2-8); NEUTROPHILS PERCENT AUTO 85.3 % (42.2-75.2); PLATELET COUNT,PLT 213 10^3/uL (150-450); WHITE BLOOD CELL COUNT,WBC 19.3 10^3/uL (5.0-10.0)
[2024-06-05] MEDS: Sodium Chloride 0.9% 500 ML IV SCH (12:42)
[2024-06-05] MEDS: Azithromycin 500 MG in Sodium Chloride 0.9% 250 ML IV ONE (12:43)
[2024-06-05 12:51] LABS: ANION GAP 12.7 mEq/L (7-13); C-REACTIVE PROTEIN 8.83 ng/dL (<=0.50); CALCIUM 9.1 mg/dL (8.5-10.1); CREATININE 0.47 mg/dL (0.55-1.02); EST CRCL DRUG DOSING (CG) 98.36 mL/min; MAGNESIUM 1.6 mg/dL (1.8-2.4); POTASSIUM,K 3.7 mmol/L (3.5-5.1)
[2024-06-05] MEDS: cefTRIAXone 2 GM Vial IVPUSH ONE (12:51)
[2024-06-05 12:58] LABS: LACTIC ACID 1.3 mmol/L (0.4-2.0)
[2024-06-05] MEDS: Magnesium Sulf/Wat 2 GM/50 mL 2 GM in Premix Bag 1 BAG IV ONE (14:54)
[2024-06-05] MEDS ORDERED: Acetaminophen/oxyCODONE 325-5 MG Tab PO PRN (15:04)
[2024-06-05] MEDS ORDERED: Sennosides/Docusate Sodium 50-8.6 MG Tab PO PRN (15:04)
[2024-06-05] MEDS ORDERED: Acetaminophen 325 MG Tab PO PRN (15:04)
[2024-06-05] MEDS ORDERED: Magnesium Hydroxide 400 MG/5 ML Susp 30 ML Cup PO PRN (15:04)
[2024-06-05] MEDS ORDERED: Morphine 2 MG/ML SYRINGE IVPUSH PRN (15:04)
[2024-06-05] MEDS ORDERED: Polyethylene Glycol 3350 Powder 17 GM Packet PO PRN (15:04)
[2024-06-05] MEDS ORDERED: Naloxone 2 MG/2 ML Syringe IVPUSH PRN (15:04)
[2024-06-05] MEDS ORDERED: 50% Dextrose in Water 50 ML Syringe IVPUSH PRN (15:07)
[2024-06-05] MEDS ORDERED: Glucagon,Human Recombinant 1 MG Vial IM PRN (15:07)
[2024-06-05] MEDS ORDERED: Aminophylline 500 MG in Sodium Chloride 0.9% 500 ML IV SCH (15:15)
[2024-06-05] MEDS: methylPREDNISolone Sodium Succinate 125 MG/2 ML SDV IVPUSH SCH (15:39)
[2024-06-05] MEDS: Aminophylline 500 MG in Sodium Chloride 0.9% 500 ML IV ONE (15:49)
[2024-06-05] MEDS: Ondansetron 4 MG/2 ML SDV IVPUSH PRN (16:00)
[2024-06-05] MEDS: Aminophylline 500 MG in Sodium Chloride 0.9% 500 ML IV SCH (16:20)
[2024-06-05] MEDS: Magnesium Oxide 400 MG Tab PO SCH (17:36)
[2024-06-05] MEDS: Insulin Lispro 100 Units/ML 3 ML Vial SUBCUT SCH (17:37)
[2024-06-05] MEDS: Formoterol/Mometasone 200-5 MCG 8.8 GM Inhaler INH SCH (17:47)
[2024-06-05] MEDS: Lactated Ringers 1,500 ML IV ONE (20:45)
[2024-06-05] MEDS: Lactated Ringers 2,000 ML IV ONE (20:45)
[2024-06-05] MEDS: Midodrine 5 MG Tab PO ONE (20:50)
[2024-06-05] MEDS: Benzonatate 100 MG Cap PO PRN (20:51)
[2024-06-05] MEDS: Saccharomyces Boulardii (Probiotic) 250 MG Cap PO SCH (20:51)
[2024-06-05] MEDS: Melatonin 3 MG Tab PO SCH (20:51)
[2024-06-05] MEDS: guaiFENesin 600 MG Tab.ER PO SCH (20:51)
[2024-06-05] MEDS: Albuterol/Ipratropium 3.0-0.5 MG/3 ML Neb Soln NEB SCH (20:51)
[2024-06-05] MEDS: hydrOXYzine HCl 25 MG Tab PO PRN (20:51)
[2024-06-05] MEDS: LORazepam 0.5 MG Tab PO PRN (20:52)
[2024-06-06 06:23] LABS: EOSINOPHILS PERCENT AUTO 0.1 % (1.0-3.0); HEMATOCRIT 32.2 % (37.0-47.0); HEMOGLOBIN 9.5 g/dL (12.0-16.0); LYMPHOCYTES PERCENT AUTO 2.4 % (20.5-50.1); MEAN CORPUSCULAR HEMOGLOBIN 26.5 pg (27.0-34.0); MEAN CORPUSCULAR HGB CONC 29.5 g/dL (33.0-35.0); MEAN CORPUSCULAR VOLUME 89.9 fL (80-100); MONOCYTES PERCENT AUTO 1.4 % (2-8); NEUTROPHILS PERCENT AUTO 96.1 % (42.2-75.2); PLATELET COUNT,PLT 232 10^3/uL (150-450); RED BLOOD CELL COUNT 3.58 10^6/uL (4.2-5.4); WHITE BLOOD CELL COUNT,WBC 24.2 10^3/uL (5.0-10.0)
[2024-06-06] MEDS: Tiotropium Bromide 4 GM Inhalation Spray (2.5mcg/1 dose; 10 doses) INH SCH (06:34)
[2024-06-06 06:47] LABS: ALANINE AMINOTRANSFERASE,ALT 10 U/L (14-59); ALBUMIN 2.8 g/dL (3.4-5.0); ALKALINE PHOSPHATASE 123 U/L (46-116); ANION GAP 13.3 mEq/L (7-13); ASPARTATE AMNIOTRANSFERASE,AST 8 U/L (15-37); BILIRUBIN TOTAL 0.3 mg/dL (0.2-1.0); BLOOD UREA NITROGEN,BUN 8 mg/dL (7-18); BUN/CREATININE RATIO 19.5 (No establ ref range); CALCIUM 8.8 mg/dL (8.5-10.1); CARBON DIOXIDE,CO2 27 mmol/L (21-32); CHLORIDE,CL 104 mmol/L (98-107); CREATININE 0.41 mg/dL (0.55-1.02); EST CRCL DRUG DOSING (CG) 112.76 mL/min; GLUCOSE RANDOM 164 mg/dL (70-99); MAGNESIUM 1.9 mg/dL (1.8-2.4); POTASSIUM,K 3.3 mmol/L (3.5-5.1); PROTEIN TOTAL,TP 6.2 g/dL (6.4-8.2); SODIUM,NA 141 mmol/L (136-145)
[2024-06-06 06:59] LABS: A/G RATIO 0.82; C-REACTIVE PROTEIN > 25.00 ng/dL (<=0.50); ESTIMATED GFR 113 mL/min (>=60)
[2024-06-06] MEDS: Azithromycin 500 MG in Sodium Chloride 0.9% 250 ML IV SCH (08:34)
[2024-06-06] MEDS: hydrALAZINE 20 MG/ML SDV IVPUSH PRN (08:35)
[2024-06-06] MEDS: Diltiazem 180 MG Cap.CD PO SCH (08:35)
[2024-06-06] MEDS: Midodrine 5 MG Tab PO SCH (08:35)
[2024-06-06] MEDS: cefTRIAXone 2 GM Vial IVPUSH SCH (08:35)
[2024-06-06] MEDS: Albuterol/Ipratropium 3.0-0.5 MG/3 ML Neb Soln NEB PRN (17:58)
[2024-06-07 06:20] LABS: HEMOGLOBIN 8.9 g/dL (12.0-16.0); MEAN CORPUSCULAR HEMOGLOBIN 26.8 pg (27.0-34.0); MEAN CORPUSCULAR HGB CONC 29.7 g/dL (33.0-35.0); MEAN CORPUSCULAR VOLUME 90.4 fL (80-100); PLATELET COUNT,PLT 273 10^3/uL (150-450); RED BLOOD CELL COUNT 3.32 10^6/uL (4.2-5.4); WHITE BLOOD CELL COUNT,WBC 24.7 10^3/uL (5.0-10.0)
[2024-06-07 06:40] LABS: ALBUMIN 2.6 g/dL (3.4-5.0); ANION GAP 11.3 mEq/L (7-13); BILIRUBIN TOTAL 0.2 mg/dL (0.2-1.0); BUN/CREATININE RATIO 42.1 (No establ ref range); C-REACTIVE PROTEIN 14.25 ng/dL (<=0.50); CREATININE 0.38 mg/dL (0.55-1.02); EST CRCL DRUG DOSING (CG) 121.66 mL/min; MAGNESIUM 2.1 mg/dL (1.8-2.4); NEUTROPHILS PERCENT AUTO 93.9 % (42.2-75.2); POTASSIUM,K 3.3 mmol/L (3.5-5.1); PROTEIN TOTAL,TP 6.2 g/dL (6.4-8.2)
[2024-06-07 06:41] LABS: BASOPHILS PERCENT AUTO 0.1 % (0.0-1.0); LYMPHOCYTES PERCENT AUTO 3.2 % (20.5-50.1); MONOCYTES PERCENT AUTO 2.8 % (2-8)
[2024-06-07 06:45] LABS: A/G RATIO 0.72
[2024-06-07 07:31] LABS: BAND PERCENT MAN 3 %; LYMPHOCYTES PERCENT MAN 3 % (20-50); MONOCYTES PERCENT MAN 2 % (2-8); SEG NEUTROPHILS PERCENT MAN 92 % (42-75)
[2024-06-07] MEDS ORDERED: Calcium Carbonate 500 MG Tab.Chew PO PRN (10:32)
[2024-06-07] MEDS: Famotidine 20 MG/2 ML SDV IVPUSH ONE (11:51)
[2024-06-07] MEDS: Potassium Chloride 10 MEQ Tab.ER PO ONE ×2 (12:19→17:14)
[2024-06-07] MEDS: methylPREDNISolone Sodium Succinate 125 MG/2 ML SDV IVPUSH SCH (13:05)
[2024-06-07] MEDS: Fluconazole/Normal Saline 200 MG in Premix Bag 1 BAG IV ONE (21:16)
[2024-06-07] MEDS: Famotidine 20 MG Tab PO SCH (21:27)
[2024-06-08 07:05] LABS: BASOPHILS PERCENT AUTO 0.1 % (0.0-1.0); HEMATOCRIT 27.9 % (37.0-47.0); HEMOGLOBIN 8.4 g/dL (12.0-16.0); LYMPHOCYTES PERCENT AUTO 4.3 % (20.5-50.1); MEAN CORPUSCULAR HEMOGLOBIN 27.7 pg (27.0-34.0); MEAN CORPUSCULAR HGB CONC 30.1 g/dL (33.0-35.0); MEAN CORPUSCULAR VOLUME 92.1 fL (80-100); MONOCYTES PERCENT AUTO 2.7 % (2-8); NEUTROPHILS PERCENT AUTO 92.9 % (42.2-75.2); PLATELET COUNT,PLT 250 10^3/uL (150-450); RED BLOOD CELL COUNT 3.03 10^6/uL (4.2-5.4); WHITE BLOOD CELL COUNT,WBC 14.4 10^3/uL (5.0-10.0)
[2024-06-08 07:26] LABS: ALBUMIN 2.7 g/dL (3.4-5.0); BILIRUBIN TOTAL 0.1 mg/dL (0.2-1.0); BUN/CREATININE RATIO 32.4 (No establ ref range); C-REACTIVE PROTEIN 4.09 ng/dL (<=0.50); CALCIUM 9.1 mg/dL (8.5-10.1); CREATININE 0.68 mg/dL (0.55-1.02); EST CRCL DRUG DOSING (CG) 67.99 mL/min; MAGNESIUM 2.3 mg/dL (1.8-2.4); PROTEIN TOTAL,TP 5.9 g/dL (6.4-8.2)
[2024-06-08 07:30] LABS: A/G RATIO 0.84
[2024-06-08] MEDS: Fluconazole 100 MG Tab PO SCH (08:12)
[2024-06-08 11:25] VITALS: BP 145/75; PULSE 77
== END 2024-06-08 11:50 | disposition home or self-care (01) | DRG 139 ==
LOC: DL.ED 11:47 → DL.MS 14:14
PROVIDERS: ADMIT Internal Medicine; ATTEND Internal Medicine
DX: J18.9 Pneumonia, unspecified organism (principal); J96.21 Acute and chronic respiratory failure with hypoxia; J96.22 Acute and chronic respiratory failure with hypercapnia; J44.1 Chronic obstructive pulmonary disease with (acute) exacerbation; J44.0 Chronic obstructive pulmonary disease with (acute) lower respiratory infection; I50.9 Heart failure, unspecified; H54.7 Unspecified visual loss; I27.20 Pulmonary hypertension, unspecified; F41.9 Anxiety disorder, unspecified; R73.9 Hyperglycemia, unspecified; E83.42 Hypomagnesemia; E87.6 Hypokalemia; K21.9 Gastro-esophageal reflux disease without esophagitis; Z99.81 Dependence on supplemental oxygen; Z79.51 Long term (current) use of inhaled steroids; Z88.0 Allergy status to penicillin; Z91.030 Bee allergy status; Z88.8 Allergy status to other drugs, medicaments and biological substances; Z79.2 Long term (current) use of antibiotics; Z79.899 Other long term (current) drug therapy; Z90.49 Acquired absence of other specified parts of digestive tract; Z98.890 Other specified postprocedural states; Z86.16 Personal history of COVID-19
CPT/HCPCS: 36415; 71045; 80048; 80053; 80198; 82947; 83605; 83735; 83880; 84145; 85025; 86140; 87040; 87070; 87077; 87081; 87186; 87205; 87428-QW; 87430; 94010; 94640; 94664; 96365; 96375; 99223; 99233; 99238; 99284; 99285-25; A9270-GY; J0280; J0360; J0456; J0696; J1450; J1815-GY; J2405; J2919; J3475; J7040; J7050; J7120

== ENCOUNTER 2024-12-13 18:31 | Emergency (ER) | payer BC ==
[2024-12-13 19:16] VITALS: BP 138/70; PULSE 90
== END 2024-12-13 19:15 | disposition home or self-care (01) ==
LOC: DL.ED 18:31
DX: U07.1 COVID-19 (principal); J44.9 Chronic obstructive pulmonary disease, unspecified; Z90.49 Acquired absence of other specified parts of digestive tract; Z87.891 Personal history of nicotine dependence; Z88.0 Allergy status to penicillin; Z88.8 Allergy status to other drugs, medicaments and biological substances; Z91.030 Bee allergy status; Z79.51 Long term (current) use of inhaled steroids; Z79.899 Other long term (current) drug therapy
CPT/HCPCS: 99283